=== PATIENT | male | born 1995 | race Caucasian/White ===

== ENCOUNTER 2018-02-03 16:45 | Emergency (ER) | payer SELFPAY ==
[2018-02-03 16:47] VITALS: BP 155/75; PULSE 105; RESP 17; TEMP 36.8; O2SAT 97; BMI 29.7
--- NOTE | 2018-02-03 16:57 | ED.VISSUMM ---
- ER Visit Summary Date of Service: 02/03/18 Chief Complaint: Tooth pain, facial swelling History of Present Illness: The patient is a 22 M who presents with the above symptoms. His tooth has been hurting for 2 days. He noted some facial swelling. He denies fevers. He has not checked his temperature today. He has been taking ibuprofen without any relief. He has no dentist that he sees. He is a smoker. Physical Examination: Vital signs are reviewed. HEENT exam reveals a mild amount of right sided facial swelling. No dental or gingival abscesses noted. No cervical lymphadenopathy. Mouth exam reveals a dental fracture at tooth #29. Tenderness to palpation around this area is noted. No Serge's angina. Test Results: None performed Emergency Department Course and Treatment: Patient will be treated with one [place] and penicillin here. Naproxen and penicillin for home. He will be given dental resources to follow-up with. Treatment Plan: [] Disposition: Discharge Impression: Odontalgia This note was generated with [employer] dictation software. It may contain incorrect words, spelling, and punctuation that were not noted in review of the chart prior to signing ED Disposition - Plan for ED Patient: Chief Complaint: Dental Referrals: Care Physician,No Primary [Primary Care Provider] -
--- NOTE | 2018-02-03 16:59 | ED.DEP ---
ED Disposition - Plan for ED Patient: Disposition: Home or Assisted Living Chief Complaint: Dental Instructions: ED Tooth Pain Prescriptions: Naproxen [Naprosyn] 500 mg PO BID PRN #20 tab Penicillin V Potassium 500 mg PO 4X/DAY #28 tab Referrals: Care Physician,No Primary [Primary Care Provider] -
[2018-02-03] MEDS: HYDROcodone Bitartrate/Apap 5/325 Tablet PO (17:08)
[2018-02-03] MEDS: Penicillin Vk 250 MG Tablet 500 MG PO (17:08)
== END 2018-02-03 17:13 | disposition home or self-care (01) ==
PROVIDERS: Emergency Provider Emergency Medicine
DX: S02.5XXA Fracture of tooth (traumatic), initial encounter for closed fracture (principal); X58.XXXA Exposure to other specified factors, initial encounter; F17.200 Nicotine dependence, unspecified, uncomplicated
CPT/HCPCS: 99283

== ENCOUNTER 2018-03-20 23:09 | Emergency (ER) | payer SELFPAY ==
[2018-03-20 23:10] VITALS: BP 136/70; BP 141/75; PULSE 90; PULSE 94; RESP 16; TEMP 37; O2SAT 98; BMI 32.3
--- NOTE | 2018-03-20 23:49 | ED.DCSUM_ITS ---
- ER Visit Summary Date of Service: 03/20/18 Chief Complaint: Dental pain History of Present Illness: The patient is a 22 M who goes to the dentist in [place]. He does not have a primary care physician. He reports that he was here approximately 1 month ago for a dental abscess. He was placed on penicill in. Reports that the abscess seem to have improved. His pain resolved. He states that he missed his dental appointment because area was infected and he is self-pay and did not want to go and has not stated they could not do anything. Patient reports that he began getting pain to his right mandibular third molar again 3 days ago. Is a sharp pain is 1010 at worst and 7-10 currently. Is worsened by pressure and relieved by Tylenol. He denies any soft hot or cold sensitivity. Patient states that last night he saw a small white bubble in the gum and popped it and his pain increased greatly. However, today he has had subjective fever and chills. Complains of nausea without vomiting. He has a headache that is 4- 10 severity. Physical Examination: Vitals: Stable. Afebrile. Mouth: No trismus. No edema of the floor of the mouth. Pain with percussion of right mandibular third molar. There is mild soft tissue swelling here. No focal abscess. General: A&O x 3. NAD. Cardiovascular exam: Regular rate and rhythm, no murmur, rub or gallop. Respiratory exam: Clear to auscultation bilaterally. No wheezes or stridor. Abdominal exam: Soft, nontender, nondistended, normal bowel sounds. No peritoneal signs. Extremity: No clubbing, cyanosis, or edema. Emergency Department Course and Treatment: I offered to put in an IV to give patient clindamycin. He refused this. He was given Zofran, clindamycin, naproxen, and Hallock p.o. An OARRS report was obtained which is negative. Treatment Plan: Patient will be discharged with Zofran, clindamycin, naproxen, and Hallock. Instructed to follow-up with his dentist as soon as possible. Return to the emergency department for any worsening symptoms. Disposition: To home in improved and stable condition. Impression: 1. Dental abscess. This note was generated with [employer] software. It may contain incorrect words, spelling, and punctuation that were not noted in review of the chart prior to signing ED Disposition - Plan for ED Patient: Disposition: Home or Assisted Living Chief Complaint: Dental Instructions: ED Abscess Dental Prescriptions: Hydrocodone Bitart/Apap 5-325 [Hallock 5MG-325MG] 1 tablet PO Q4H PRN PRN 2 Days #10 tablet PRN Reason: Pain Ondansetron [Zofran Odt] 4 mg PO Q8H PRN PRN #10 tablet PRN Reason: Nausea Naproxen [Naprosyn] 500 mg PO BID #14 tablet Clindamycin [Cleocin] 300 mg PO 4X/DAY #80 capsule Referrals: Dentist,Your [STAFF PHYSICIAN] - As soon as possible
[2018-03-21] MEDS: Clindamycin HCl 150 MG Capsule 300 MG PO (00:05)
[2018-03-21] MEDS: HYDROcodone Bitartrate/Apap 5/325 Tablet PO ×2 (00:06→00:15)
[2018-03-21] MEDS: Naproxen 250 MG Tablet 500 MG PO (00:06)
[2018-03-21] MEDS: Ondansetron ODT 4 MG Tablet PO ×2 (00:16)
== END 2018-03-21 00:19 | disposition home or self-care (01) ==
LOC: ED 03-21 00:11
PROVIDERS: Emergency Provider Emergency Medicine
DX: K04.7 Periapical abscess without sinus (principal); Z72.0 Tobacco use
CPT/HCPCS: 99283

== ENCOUNTER 2018-06-11 19:33 | Emergency (ER) | payer SELFPAY ==
[2018-06-11 19:33] VITALS: BP 154/79; PULSE 111; RESP 16; TEMP 36.4; O2SAT 98; BMI 31.8
--- NOTE | 2018-06-11 19:43 | CT_ITS ---
STUDY: CT ABDOMEN AND PELVIS WITH CONTRAST REASON FOR EXAM: Male, 23 years old. Left side abdominal pain, nausea, constipation. RADIATION DOSAGE (If Supplied By Facility): CTDIvol = ( 15.74 ) mGy, DLP = ( 991.52 ) mGycm TECHNIQUE: Transaxial images were obtained from the dome of the diaphragm to the symphysis pubis without oral contrast. Isovue 300 100ml IV/Oral was administered. Sagittal and coronal images were reconstructed. Individualized dose optimization techniques were used for this CT. COMPARISON: None. FINDINGS: Lung bases are clear. Visualized heart is normal. The liver is unremarkable. The gallbladder is unremarkable. The spleen and pancreas are unremarkable. The adrenal glands are normal. The kidneys are unremarkable. No stones or hydronephrosis. The aorta is normal in caliber. There is no free fluid, free air, or organized collection. No bowel obstruction or inflammatory change. Stool burden is located moderate. Normal appendix. Urinary bladder is unremarkable. Normal abdominal wall. Normal osseous structures. CT/Abdomen/Pelvis WITH Contrast IMPRESSION: Normal CT of the abdomen and pelvis. Electronically Signed: Myesha Lemos MD at 22:34 EDT Tel , Service support ,
[2018-06-11 20:17] LABS: Absolute Lymphocyte Count 1.92 X10^3/ul (0.83-4.51); Absolute Neutrophil Count 4.2 X10^3/uL (2.0-7.7); Basophil# 0.02 X10^3/uL; Basophil% 0.3 % (0-1); Eosinophil# 0.06 X10^3/uL; Eosinophils% 0.8 % (0-5); Hematocrit 49.4 % (40-54); Hemoglobin 16.3 g/dl (13.0-16.5); Lymphocyte # 1.92 X10^3/ul (4.0); Lymphocyte % 26.6 % (19-41); Mean Corpuscular Hgb 27.9 pg (27.0-32.0); Mean Corpuscular Volume 84.4 fL (80-94); Mean Platelet Vol. 10.2 fl (6.2-12.0); Monocyte# 1.04 X10^3/uL; Monocyte% 14.4 % (0-10); Neutrophil # 4.16 X10^3/uL (2.7-7.7); Neutrophil % 57.6 % (47-70); Platelet Count 256 K/mm3 (150-450); RBC Distribution Width SD 39.8 fl (35.1-43.9); Red Blood Count 5.85 M/mm3 (4.6-6.2); White Blood Count 7.2 K/mm3 (4.4-11.0)
[2018-06-11 20:22] LABS: POSITIVE COUNT NO; POSITIVE DIFFERENTIAL NO; POSITIVE MORPHOLOGY NO
[2018-06-11 20:42] LABS: ALB/GLOB Ratio 1.1 RATIO (0.9-2.4); AST(SGOT) 18 U/L (15-37); Alanine Aminotransfer ALT/SGPT 36 U/L (16-61); Albumin, Serum 4.4 g/dL (3.2-5.0); Alkaline Phosphatase 92 U/L (45-117); Anion Gap 2 (5-15); BUN 10 mg/dL (7-18); BUN/Creat Ratio 9.6 RATIO (10-20); Calcium,Total 8.8 mg/dL (8.5-10.1); Chloride 103 mmol/L (98-107); Creatinine, Serum 1.04 mg/dL (0.70-1.30); EST Glomerular Filtration Rate 93 mL/min (>60); Est Glom Filt Rate - Afr Amer 113 mL/min (>60); Globulin 3.9 g/dL (2.2-4.2); Glucose 115 mg/dL (74-106); Lipase 74 U/L (73-393); Potassium 3.7 mmol/L (3.5-5.1); Protein, Total 8.3 g/dL (6.4-8.2); Sodium Level 137 mmol/L (136-145)
[2018-06-11 20:44] LABS: Lactic Acid 1.4 mmol/L (0.4-2.0)
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
[2018-06-11] MEDS: Ondansetron 4 MG/2 ML Vial IV (21:49)
[2018-06-11] MEDS: Morphine 4 MG/ML Syringe IV (21:52)
[2018-06-11 21:53] VITALS: BP 154/98; PULSE 96; RESP 16; O2SAT 97
[2018-06-11 22:27] VITALS: BP 172/86; PULSE 84; RESP 16; O2SAT 96
[2018-06-11] MEDS: 0.9% Normal Saline 1,000 ML 999 ML IV (22:45)
--- NOTE | 2018-06-11 22:46 | ED.DEP ---
ED Disposition - Plan for ED Patient: Disposition: Home or Assisted Living Instructions: ED Constipation Referrals: Nishant Vergara MD [STAFF PHYSICIAN] - 3-5 Days if not improving Additional Instructions: Plenty of fluids. Fruits, vegetables and fiber for the constipation along with prune juice. Magnesium citrate to help with constipation. Follow-up with not improving or return to ER feeling worse. Your CAT scan and labs were unremarkable other than increased stool consistent with constipation.
[2018-06-11] MEDS: Magnesium Citrate 300 ML PO (23:05)
[2018-06-11 23:10] VITALS: BP 148/70; PULSE 77; RESP 15; O2SAT 97
== END 2018-06-11 23:26 | disposition home or self-care (01) ==
PROVIDERS: Emergency Provider Emergency Medicine
DX: R10.13 Epigastric pain (principal); K59.00 Constipation, unspecified; Z72.0 Tobacco use
CPT/HCPCS: 74177; 80053; 83605; 83690; 85025; 96361; 96374; 96375; 99283; J7030; Q9967; A4216; J2405

== ENCOUNTER 2018-06-13 15:36 | Emergency (ER) | payer SELFPAY ==
[2018-06-13 15:36] VITALS: BP 167/98; PULSE 113; RESP 16; TEMP 36.6; O2SAT 98; BMI 26.6
[2018-06-13 15:48] VITALS: PULSE 114; RESP 20; O2SAT 97
--- NOTE | 2018-06-13 15:57 | ED.RN ---
RESPIRATORY CAME IN TO DO AN EKG. PT REFUSED.
--- NOTE | 2018-06-13 16:01 | EKG12_ITS ---
Test Reason : CHEST PAIN Blood Pressure : / mmHG Vent. Rate : 105 BPM Atrial Rate : 105 BPM P-R Int : 130 ms QRS Dur : 090 ms QT Int : 354 ms P-R-T Axes : 060 060 028 degrees QTc Int : 467 ms Sinus tachycardia Otherwise normal ECG Confirmed by ALEJANDRINA GUTIERREZ, TANIA ([id number]), general expeditor NAY NAIDU ([id number]) on 06/14/2018 2:25:43 PM Referred By: MICHI Confirmed By:TANIA TINOCO MD
[2018-06-13] MEDS: LORazepam 1 MG Tablet PO ×2 (16:05→17:50)
--- NOTE | 2018-06-13 16:06 | ED.DCSUM_ITS ---
- ER Visit Summary Date of Service: 06/13/18 Chief Complaint: Chest pain, anxiety History of Present Illness: The patient is a 23 M presenting with chest pain, anxiety. He states this started while [place]. He started having chest pain and shortness of breath. He states he feels shaky all over. He has never had these symptoms in the past. He states he is under a lot of stress with work. Physical Examination: Vitals are stable. HR 114. Patient is afebrile. Alert no acute distress. HEENT exam is unremarkable. Neck is supple. Lungs are clear and equal bilaterally. Heart is regular and tachycardic Abdomen is soft nontender nondistended. Extremities are unremarkable. Skin is warm and dry. No focal neurologic deficit. Remainder of exam is unremarkable. Emergency Department Course and Treatment: Patient was given IV fluids, Ativan. EKG is sinus tachycardia rate of 105. Chest x-ray shows no acute process. CBC, chemistries are unremarkable. Troponin is negative. D-dimer negative. Patient was given Toradol IV. He was given additional dose of Ativan. Following the second dose of Ativan patient is now starting to feel improved. He is given a prescription for Vistaril. Advised to follow-up with primary care physician. Advised return to ED if worsening complaints. Disposition: Discharge home Impression: Chest pain, anxiety This note was generated with [employer] dictation software. It may contain incorrect words, spelling, and punctuation that were not noted in review of the chart prior to signing ED Disposition - Plan for ED Patient: Instructions: ED Panic Attack Prescriptions: hydrOXYzine pamoate capsule [Vistaril] 25 mg PO TID PRN PRN #20 capsule PRN Reason: Anxiety Referrals: Blair Camacho DO [NON CLINICAL AFFILIATE] -
--- NOTE | 2018-06-13 16:06 | ED.RN ---
pt does have c/o chest pain, pt refuses the ekg at this time until he can calm down.
[2018-06-13] MEDS: 0.9% Normal Saline 1,000 ML 1000 ML IV (16:33)
--- NOTE | 2018-06-13 16:33 | ED.RN ---
AT THIS TIME PT REFUSES THE CHEST X-RAY.
[2018-06-13 16:34] LABS: Absolute Lymphocyte Count 1.78 X10^3/ul (0.83-4.51); Absolute Neutrophil Count 3.2 X10^3/uL (2.0-7.7); Basophil# 0.02 X10^3/uL; Basophil% 0.3 % (0-1); Eosinophil# 0.06 X10^3/uL; Hematocrit 44.6 % (40-54); Hemoglobin 14.3 g/dl (13.0-16.5); Lymphocyte # 1.78 X10^3/ul (4.0); Lymphocyte % 30.4 % (19-41); Mean Corp Hgb Conc 32.1 g/gl (32-36); Mean Corpuscular Hgb 27.7 pg (27.0-32.0); Mean Corpuscular Volume 86.3 fL (80-94); Mean Platelet Vol. 10.1 fl (6.2-12.0); Monocyte# 0.78 X10^3/uL; Monocyte% 13.3 % (0-10); Neutrophil # 3.19 X10^3/uL (2.7-7.7); Neutrophil % 54.7 % (47-70); Platelet Count 211 K/mm3 (150-450); RBC Distribution Width CV 12.8 % (11.6-14.6); RBC Distribution Width SD 40.5 fl (35.1-43.9); Red Blood Count 5.17 M/mm3 (4.6-6.2); White Blood Count 5.9 K/mm3 (4.4-11.0)
[2018-06-13 16:35] LABS: POSITIVE COUNT NO; POSITIVE DIFFERENTIAL NO; POSITIVE MORPHOLOGY NO
[2018-06-13 16:49] LABS: D-Dimer Quantitative (DVT/PE) 0.27 FEU/ug/m (0.27-0.49)
[2018-06-13 16:54] LABS: Anion Gap 3 (5-15); BUN 11 mg/dL (7-18); BUN/Creat Ratio 11.1 RATIO (10-20); Calcium,Total 8.6 mg/dL (8.5-10.1); Chloride 104 mmol/L (98-107); Creatinine, Serum 0.99 mg/dL (0.70-1.30); EST Glomerular Filtration Rate 99 mL/min (>60); Est Glom Filt Rate - Afr Amer 120 mL/min (>60); Estimated Creatinine Clearance 107.57 ml/min; Glucose 101 mg/dL (74-106); Potassium 3.5 mmol/L (3.5-5.1); Sodium Level 137 mmol/L (136-145)
--- NOTE | 2018-06-13 16:54 | RAD_ITS ---
STUDY: X-RAY CHEST REASON FOR EXAM: Male, 23 years old. Shortness of breath TECHNIQUE: Frontal view of the chest COMPARISON: None. FINDINGS: The lungs are clear. There are no pleural effusions. There is no pneumothorax. The heart is normal in size. The visualized osseous structures are within normal limits. RAD/Chest 1 View (Portable) IMPRESSION: No acute thoracic pathology. Electronically Signed: Hans Gómez, at 17:15 EDT Tel , Service support ,
[2018-06-13] MEDS: Ketorolac 30 MG/ML Syringe IV (16:57)
[2018-06-13 17:30] VITALS: BP 149/81; PULSE 99; RESP 12; O2SAT 98
--- NOTE | 2018-06-13 18:41 | ED.DEP ---
ED Disposition - Plan for ED Patient: Instructions: ED Panic Attack Prescriptions: hydrOXYzine pamoate capsule [Vistaril] 25 mg PO TID PRN PRN #20 capsule PRN Reason: Anxiety Referrals: Blair Camacho DO [NON CLINICAL AFFILIATE] -
[2018-06-13 18:43] VITALS: BP 146/85; PULSE 98; RESP 16; O2SAT 97
== END 2018-06-13 18:52 | disposition home or self-care (01) ==
LOC: ED 16:38
PROVIDERS: Emergency Provider Emergency Medicine
DX: F41.0 Panic disorder [episodic paroxysmal anxiety] (principal); F43.0 Acute stress reaction; R07.9 Chest pain, unspecified; Z72.0 Tobacco use
CPT/HCPCS: 71045; 80048; 84484; 85025; 85379; 93005; 96361; 96374; 99285; J7030; A4216

== ENCOUNTER 2019-01-11 20:12 | Emergency (ER) | payer MEDICAID, SELFPAY ==
[2019-01-11 20:12] VITALS: PULSE 114
[2019-01-11 20:13] VITALS: PULSE 123; RESP 18; TEMP 37; O2SAT 100; BMI 31.1
--- NOTE | 2019-01-11 20:25 | EKG12_ITS ---
Test Reason : CP Blood Pressure : / mmHG Vent. Rate : 106 BPM Atrial Rate : 106 BPM P-R Int : 132 ms QRS Dur : 082 ms QT Int : 348 ms P-R-T Axes : 059 059 050 degrees QTc Int : 462 ms Sinus tachycardia Otherwise normal ECG Confirmed by JUSTIN GUTIERREZ, SIMEON ([id number]), senior technical editor NAY NAIDU ([id number]) on 01/18/2019 11:08:05 AM Referred By: LINDA Confirmed By:IVANA ANDERSON MD
--- NOTE | 2019-01-11 20:25 | RAD_ITS ---
STUDY: X-RAY CHEST REASON FOR EXAM: Male, 23 years old. Left chest pain radiating down left arm TECHNIQUE: AP portable COMPARISON: June 13, 2018 FINDINGS: Less than optimal inspiratory effort is seen however the lungs are clear. There is no demonstrated pleural abnormality. Normal size heart. Normal mediastinum and ami. Normal visualized pulmonary arteries. Normal visualized aortic arch and descending thoracic aorta. Normal visualized thoracic spine. Normal visualized ribs, clavicles, and shoulders. There is no demonstrated abnormality of the visualized soft tissue structures of the upper abdomen. No significant change since prior study RAD/Chest 1 View (Portable) IMPRESSION: Suboptimal inspiratory effort. No acute disease Electronically Signed: Ethan Oates MD at 20:44 EDT , Service support ,
[2019-01-11 20:35] LABS: Absolute Lymphocyte Count 3.62 X10^3/uL (0.83-4.51); Absolute Neutrophil Count 3.6 X10^3/uL (2.0-7.7); Basophil# 0.04 X10^3/uL; Basophil% 0.5 % (0-1); Eosinophil# 0.09 X10^3/uL; Hematocrit 45.9 % (40-54); Hemoglobin 14.9 g/dL (13.0-16.5); Lymphocyte # 3.62 X10^3/ul (4.0); Lymphocyte % 41.9 % (19-41); Mean Corp Hgb Conc 32.5 g/dL (32-36); Mean Corpuscular Hgb 27.9 pg (27.0-32.0); Mean Platelet Vol. 10.6 fl (6.2-12.0); Monocyte# 1.29 X10^3/uL; Monocyte% 14.9 % (0-10); NRBC Flagged by Analyzer 0 % (0-5); Neutrophil # 3.57 X10^3/uL (2.7-7.7); Neutrophil % 41.4 % (47-70); Platelet Count 243 K/mm3 (150-450); RBC Distribution Width CV 12.6 % (11.6-14.6); RBC Distribution Width SD 39.6 fl (35.1-43.9); Red Blood Count 5.34 M/mm3 (4.6-6.2); White Blood Count 8.6 K/mm3 (4.4-11.0)
[2019-01-11] MEDS: 0.9% Normal Saline 1,000 ML 150 ML IV (20:40)
[2019-01-11] MEDS: Ketorolac 30 MG/ML Syringe IV (20:40)
[2019-01-11 20:42] LABS: D-Dimer Quantitative (DVT/PE) < 0.27 FEU/ug/m (0.27-0.49)
[2019-01-11 20:48] LABS: Anion Gap 8 (5-15); BUN 15 mg/dL (7-18); BUN/Creat Ratio 15.6 RATIO (10-20); Calcium,Total 9.1 mg/dL (8.5-10.1); Chloride 105 mmol/L (98-107); Creatinine, Serum 0.96 mg/dL (0.70-1.30); EST Glomerular Filtration Rate 102 mL/min (>60); Est Glom Filt Rate - Afr Amer 123 mL/min (>60); Estimated Creatinine Clearance 122.51 ml/min; Glucose 106 mg/dL (74-106); Potassium 3.3 mmol/L (3.5-5.1); Sodium Level 139 mmol/L (136-145)
[2019-01-11 20:55] LABS: Erythrocyte Sedimentation Rate 13 mm/hr (0-15)
--- NOTE | 2019-01-11 21:08 | ED.DCSUM_ITS ---
- ER Visit Summary Date of Service: 01/11/19 Chief Complaint: [Chest pain] History of Present Illness: The patient is a 23 M [presents to the emergency department with chest pain that has had intermittently for over 5 months. Patient states that he has severe pain that radiates from his chest onto his left arm at times. Patient states the pain sometimes will go up into his neck. He is been seen in the ER for this in the past has been diagnosed with anxiety. Patient was on anxiety medications but he is not currently on anything because he did not feel like it was helping him. Patient was on BuSpar for a time and Vistaril which were not helping him. His recent travel or surgery. Today patient states that he was fine all day but then got on the phone and started feeling weird and then developed severe chest pain. He has history of high cholesterol. He is a smoker. He denies any fever or cough.] Physical Examination: [HEENT-PERRLA, EOMI. Cranial nerves II through XII grossly intact. TMs clear. Mucous membranes moist. No adenopathy. Cardiovascular-regular and tachycardic with heart rate in the low 100s. No murmurs auscultated. No rubs or clicks noted. Lungs-clear to auscultation, chest wall stable without crepitus or subcu emphysema. Patient does have some tenderness palpation of the left anterior chest wall that seems to reproduce his pain. Abdomen-normoactive bowel sounds, soft, nontender, no rebound or rigidity, no peritoneal signs. Extremities-intact ?4, normal range of motion, normal pulses, atraumatic] Test Results: [EKG obtained on arrival showed a sinus tachycardia with a ventricular rate of 106 bpm with no acute ST segment changes. CBC with differential was normal. Sed rate was normal at 13. Chemistries unremarkable. Troponin is less than 0.15. D-dimer is less than 0.27. Chest x-ray was normal.] Emergency Department Course and Treatment: [Was given Toradol and was ordered Ativan however he refused the Ativan because he does not think his symptoms are anxiety related.] Treatment Plan: [We will have a Holter monitor placed. Patient to follow-up with primary care physician data integration developer for no doc. Patient apparently has an order for an echocardiogram to be performed which is scheduled.] Disposition: [Discharged home in stable condition.] Impression: [Chest pain-etiology uncertain] This note was generated with [employer] dictation software. It may contain incorrect words, spelling, and punctuation that were not noted in review of the chart prior to signing ED Disposition - Plan for ED Patient: Referrals: Care Physician,No Primary [Primary Care Provider] -
--- NOTE | 2019-01-11 21:11 | ED.DEP ---
ED Disposition - Plan for ED Patient: Instructions: CHEST PAIN, Uncertain Cause Referrals: Care Physician,No Primary [Primary Care Provider] - Jeremy Oliva III, MD [STAFF PHYSICIAN] - 3-5 Days
[2019-01-11 21:23] VITALS: BP 124/64; PULSE 71; RESP 16; O2SAT 98
== END 2019-01-11 21:46 | disposition home or self-care (01) ==
PROVIDERS: Emergency Provider Emergency Medicine
DX: R07.9 Chest pain, unspecified (principal); E78.00 Pure hypercholesterolemia, unspecified; F17.200 Nicotine dependence, unspecified, uncomplicated
CPT/HCPCS: 71045; 80048; 84484; 85025; 85379; 85652; 93005; 93225; 93226; 96361; 96374; 99285; J7030; A4216

== ENCOUNTER → 2019-01-11 21:28 | Outpatient (CLI) | payer MEDICAID, SELFPAY ==
[2019-01-11 20:13] VITALS: BMI 31.1
== END ==
PROVIDERS: Visit Provider Internal Medicine Cardiovascular Disease
DX: R69 Illness, unspecified (principal)
CPT/HCPCS: 93225; 93226

== ENCOUNTER 2019-02-23 20:37 | Emergency (ER) | payer MEDICAID, SELFPAY ==
[2019-02-23 20:38] VITALS: BP 172/110; PULSE 103; RESP 18; TEMP 36.4; O2SAT 98; BMI 33.6
--- NOTE | 2019-02-23 21:01 | EKG12_ITS ---
Test Reason : CP Blood Pressure : / mmHG Vent. Rate : 092 BPM Atrial Rate : 092 BPM P-R Int : 114 ms QRS Dur : 086 ms QT Int : 352 ms P-R-T Axes : 047 055 038 degrees QTc Int : 435 ms Normal sinus rhythm Normal ECG Confirmed by TANIA TINOCO MD ([id number]), greeting card editor MARLYS MATA ([id number]) on 02/27/2019 11:45:49 AM Referred By: Confirmed By:TANIA TINOCO MD
--- NOTE | 2019-02-23 21:01 | CT_ITS ---
STUDY: CT BRAIN WITHOUT CONTRAST REASON FOR EXAM: Male, 23 years old. SYNCOPAL EPISODE EARLIER TODAY/SAL rt and posterior head. Pt shielded RADIATION DOSAGE (If Supplied By Facility): CTDIvol = ( 44.99 ) mGy, DLP = ( 863.60 ) mGycm TECHNIQUE: Transaxial CT imaging of the brain was performed without administration of intravenous contrast material. Individualized dose optimization techniques were used for this CT. COMPARISON: None. FINDINGS: Normal soft tissue structures. Normal calvarium. Normal size ventricles and extra-axial spaces for the patient's age. Normal white matter tracts of the cerebral hemispheres. Normal basal ganglia and thalami. Normal brainstem. Normal cerebellum. There is no intracranial hemorrhage. There are no findings of an acute ischemic infarction. Normal visualized paranasal sinuses. CT/Brain/Head without Contrast IMPRESSION: No demonstrated acute or significant intracranial process.. Electronically Signed: Darrell Carpio MD at 21:55 EST , Service support ,
[2019-02-23 21:20] VITALS: BP 159/90; PULSE 80; RESP 13; O2SAT 96
[2019-02-23 21:21] LABS: Mucous, Urine 0 SEEN /hpf (<or=2+); Squamous Epithelial Cells - UA 0 SEEN /hpf (0-5)
--- NOTE | 2019-02-23 21:27 | RAD_ITS ---
STUDY: X-RAY CHEST REASON FOR EXAM: Male, 23 years old. PT PASSED OUT TODAY AND HAS BEEN HAVING CP FOR ONE YEAR. STATES HE HAS HAD UPPER BACK PAIN,HEADACHE AND BLOODY NOSE AND NO ONE CAN FIGURE OUT WHATS WRONG TECHNIQUE: PA and lateral views of the chest. COMPARISON: January 11, 2019 FINDINGS: The lungs are clear and expanded. There is no demonstrated pleural abnormality. Normal size heart. Normal mediastinum and ami. Normal visualized pulmonary arteries. Normal visualized aortic arch and descending thoracic aorta. Normal visualized thoracic spine. Normal visualized ribs, clavicles, and shoulders. There is no demonstrated abnormality of the visualized soft tissue structures of the upper abdomen. RAD/Chest PA and Lateral IMPRESSION: Normal x-ray examination of the chest. Electronically Signed: Darrell Carpio MD at 22:05 EST , Service support ,
[2019-02-23 21:38] LABS: Absolute Lymphocyte Count 2.34 X10^3/uL (0.83-4.51); Absolute Neutrophil Count 2.9 X10^3/uL (2.0-7.7); Basophil# 0.03 X10^3/uL; Basophil% 0.5 % (0-1); Eosinophil# 0.08 X10^3/uL; Eosinophils% 1.2 % (0-5); Hematocrit 46.8 % (40-54); Hemoglobin 15.1 g/dL (13.0-16.5); Lymphocyte # 2.34 X10^3/ul (4.0); Lymphocyte % 36.5 % (19-41); Mean Corp Hgb Conc 32.3 g/dL (32-36); Mean Corpuscular Hgb 27.5 pg (27.0-32.0); Mean Corpuscular Volume 85.2 fL (80-94); Mean Platelet Vol. 10.2 fl (6.2-12.0); Monocyte# 1.04 X10^3/uL; Monocyte% 16.2 % (0-10); NRBC Flagged by Analyzer 0 % (0-5); Neutrophil # 2.91 X10^3/uL (2.7-7.7); Neutrophil % 45.4 % (47-70); Platelet Count 222 K/mm3 (150-450); RBC Distribution Width CV 12.6 % (11.6-14.6); RBC Distribution Width SD 38.9 fl (35.1-43.9); Red Blood Count 5.49 M/mm3 (4.6-6.2); White Blood Count 6.4 K/mm3 (4.4-11.0)
[2019-02-23 21:44] LABS: Color, Urine Yellow (Yellow); Glucose, Dipstick Normal (Normal); Ketone-Dipstick Negative (Negative); Leukocyte Esterase-Dipstick Negative /ul (Negative); Nitrite-Dipstick Negative (Negative); Occult Blood-Urine Negative /ul (Negative); Protein-Dipstick 15 mg/dl (Negative); Urine Bilirubin Dipstick Negative (Negative); Urine Clarity Clear (Clear); Urine Urobilinogen Normal (Normal)
[2019-02-23 21:51] LABS: ALB/GLOB Ratio 1.1 RATIO (0.9-2.4); AST(SGOT) 10 U/L (15-37); Alanine Aminotransfer ALT/SGPT 26 U/L (16-61); Alkaline Phosphatase 76 U/L (45-117); Anion Gap 7 (5-15); BUN 19 mg/dL (7-18); Calcium,Total 8.6 mg/dL (8.5-10.1); Chloride 107 mmol/L (98-107); Creatinine, Serum 1.27 mg/dL (0.70-1.30); EST Glomerular Filtration Rate 74 mL/min (>60); Est Glom Filt Rate - Afr Amer 89 mL/min (>60); Estimated Creatinine Clearance 83.85 ml/min; Globulin 3.6 g/dL (2.2-4.2); Glucose 90 mg/dL (74-106); Potassium 3.8 mmol/L (3.5-5.1); Protein, Total 7.6 g/dL (6.4-8.2); Sodium Level 142 mmol/L (136-145)
[2019-02-23 21:58] LABS: Red Blood Cells-Urine 0-5 SEEN /hpf (0-5); White Blood Cells 0-5 SEEN /hpf (0-5)
[2019-02-23 22:00] LABS: Bacteria RARE /hpf (None Seen)
[2019-02-23 22:07] LABS: Amphetamine Urine VISTA NEGATIVE (<1000 ng/mL); Barbiturate Urine VISTA NEGATIVE (< 200 ng/mL); Benzodiazepine Urine VISTA NEGATIVE (< 200 ng/mL); Cocaine Urine VISTA NEGATIVE (< 300 ng/mL); Ecstacy Urine VISTA NEGATIVE (< 500 ng/mL); Methadone Urine VISTA NEGATIVE (< 300 ng/mL); PCP Urine VISTA NEGATIVE (< 25 ng/mL); THC Urine VISTA NEGATIVE (< 50 ng/mL); Vista UDS pH Range 7
--- NOTE | 2019-02-23 22:21 | ED.DCSUM_ITS ---
- ER Visit Summary Date of Service: 02/23/19 Chief Complaint: Syncope History of Present Illness: The patient is a 23 M who states that today he was at a friend's house sitting in a chair when he went to get up he had a syncopal episode. Significant other notes that he was very red prior to him getting up. He tells me that he has been ill for a year with numerous problems that nobody can figure out and also tells me that nobody has done anything to evaluate this. When in fact the patient has had an echocardiogram, EKGs, Holter monitors, and recently saw neurology and has a MRI and an EEG ordered. He also tells me that people keep telling him that he has anxiety. He notes headache bumps in his s kin twitching of his eyes abdominal pain neck pain back pain bloody nose chills and paresthesias. It is difficult to get the patient to provide me a linear timeline as he keeps jumping from symptom to symptom. Physical Examination: Afebrile vital signs are stable Gen: Well-nourished well-developed Head: Normocephalic atraumatic Eyes: Perrl EOMI ENT: TMs clear no rhinorrhea moist mucous membranes Neck: Supple no lymphadenopathy no JVD nontender CVS: Regular rate rhythm no murmurs normal S1-S2 Respiratory: No distress clear to auscultation bilaterally chest nontender Abdomen: Soft nontender nondistended normal bowel sounds no masses Back: Nontender Extremity: Nontender no edema Skin: Normal color no rash patient points to his forearm and has me feel a 2 mm rubbery nodule in the skin probable lipoma Neuro: alert orientated ?3 CN II-XII intact normal strength sensation reflexes gait cerebellar Psych: Pressured speech and seems anxious Test Results: EKG sinus with a rate of 82. CBC chemistries normal. Urinalysis troponin negative. Urine drug screen negative. Chest x-ray negative. CT of the brain was negative. Emergency Department Course and Treatment: Patient was observed in the department on the monitor. In the 2 hours he was on the monitor there have been no dysrhythmias. Patient has numerous somatic complaints. I do not see any life-threatening causes for his symptomology tonight. Patient will be discharged home to continue follow-up with his doctors Impression: 1. Syncope 2. Headache This note was generated with [employer] dictation software. It may contain incorrect words, spelling, and punctuation that were not noted in review of the chart prior to signing ED Disposition - Plan for ED Patient: Disposition: Home or Assisted Living Instructions: SYNCOPE, Unk Cause Referrals: Rajat Marshall MD [Primary Care Provider] - As soon as possible
[2019-02-23 22:37] VITALS: BP 113/84; PULSE 81; RESP 18; O2SAT 99
== END 2019-02-23 22:38 | disposition home or self-care (01) ==
PROVIDERS: Emergency Provider Emergency Medicine; Family Provider Family Medicine; PCP Family Medicine
DX: R55 Syncope and collapse (principal); R51 Headache; F41.9 Anxiety disorder, unspecified
CPT/HCPCS: 70450; 71046; 80053; 80307; 81001; 84484; 85025; 93005; 99284; A4216

== ENCOUNTER 2019-03-18 00:51 | Emergency (ER) | payer MEDICAID, SELFPAY ==
[2019-03-18 00:52] VITALS: BP 175/97; PULSE 102; RESP 16; TEMP 36.8; O2SAT 98; BMI 34.2
--- NOTE | 2019-03-18 00:58 | EKG12_ITS ---
Test Reason : CP Blood Pressure : / mmHG Vent. Rate : 100 BPM Atrial Rate : 100 BPM P-R Int : 138 ms QRS Dur : 088 ms QT Int : 350 ms P-R-T Axes : 048 050 029 degrees QTc Int : 451 ms Normal sinus rhythm Normal ECG Confirmed by ALEJANDRINA GUTIERREZ, TANIA ([id number]), acquisition editor MARLYS MATA ([id number] on 03/20/2019 1:51:31 PM Referred By: LIAM Confirmed By:TANIA TINOCO MD
[2019-03-18 01:01] VITALS: BP 151/79
[2019-03-18] MEDS: LORazepam 1 MG Tablet PO (01:38)
[2019-03-18 01:59] VITALS: BP 149/78; PULSE 99; RESP 15; O2SAT 97
--- NOTE | 2019-03-18 01:59 | ED.DCSUM_ITS ---
- ER Visit Summary Date of Service: 03/18/19 Chief Complaint: Chest pain History of Present Illness: The patient is a 23 M who presents with chest pain. The pain started about 20 minutes prior to arrival. He had 2 similar episodes earlier today. It lasts for several minutes. It is over the right side of his chest. Associated with dry mouth, headache, nausea. Patient had this problem for over a year. He has follow-up with cardiology next month. Physical Examination: Afebrile and vital signs unremarkable except blood pressure 175/97 and heart rate 102. Patient appears anxious and is mildly agitated at times. HEENT exam unremarkable. Heart regular. Lungs clear. Abdomen soft nontender. Extremities nontender with no edema. Skin appears normal. Test Results: EKG shows sinus rhythm at a rate of 100. Troponin normal. Patient refused chest x-ray. Emergency Department Course and Treatment: Patient had an EKG and was placed on a monitor. He was slightly tachycardic. His troponin was normal. He refused a chest x-ray. He requested something for pain, but then refused Toradol. He said he did not want anything IV or IM. I offered other pain medicines, but he declined. He requested something for anxiety and received Ativan. On reevaluation, patient is stable. He has continued additional complaints including lymphadenopathy in his extremities, urinary frequency, neck pain, and multiple other complaints. I explained to the patient that I do not know what is causing all of his symptoms. I do not believe this is an emergent process. He has had multiple CBCs, most recently less than a month ago, normal ESR 2 months ago. Normal d- dimer 2 months ago. Normal CMP, urinalysis, tox less than a month ago he has worn a Holter monitor. He had a CT of his brain. He had an echo. There is n othing to suggest an emergent process. There are no further emergent diagnostic modalities available to help diagnose his symptoms. Patient was advised to follow-up as an outpatient. Treatment Plan: As above Disposition: Discharge Impression: Chest pain unclear etiology This note was generated with [employer] dictation software. It may contain incorrect words, spelling, and punctuation that were not noted in review of the chart prior to signing ED Disposition - Plan for ED Patient: Disposition: Home or Assisted Living Instructions: CHEST PAIN, Uncertain Cause Referrals: Rajat Marshall MD [Primary Care Provider] -
--- NOTE | 2019-03-18 02:00 | ED.DEP ---
ED Disposition - Plan for ED Patient: Instructions: CHEST PAIN, Uncertain Cause Referrals: Rajat Marshall MD [Primary Care Provider] -
== END 2019-03-18 02:08 | disposition home or self-care (01) ==
PROVIDERS: Emergency Provider Emergency Medicine; Family Provider Family Medicine; PCP Family Medicine
DX: R07.9 Chest pain, unspecified (principal); Z72.0 Tobacco use
CPT/HCPCS: 84484; 93005; 99283; A4216

== ENCOUNTER 2019-03-29 19:34 | Emergency (ER) | payer MEDICAID, SELFPAY ==
[2019-03-29 19:35] VITALS: BP 153/88; PULSE 108; RESP 17; TEMP 37.3; O2SAT 98; BMI 34.2
--- NOTE | 2019-03-29 19:39 | EKG12_ITS ---
Test Reason : CP Blood Pressure : / mmHG Vent. Rate : 106 BPM Atrial Rate : 106 BPM P-R Int : 122 ms QRS Dur : 082 ms QT Int : 318 ms P-R-T Axes : 036 045 046 degrees QTc Int : 422 ms Sinus tachycardia Otherwise normal ECG Confirmed by ALEJANDRINA GUTIERREZ, TANIA ([id number]), video editor MELODY RUANO ([id number]) on 03/30/2019 10:34:57 AM Referred By: MIRA WHEELER Confirmed By:TANIA TINOCO MD
--- NOTE | 2019-03-29 19:45 | RAD_ITS ---
STUDY: X-RAY CHEST REASON FOR EXAM: Male, 23 years old. Chest pain TECHNIQUE: Frontal view COMPARISON: February 23, 2019 FINDINGS: The lungs are clear and expanded. There is no demonstrated pleural abnormality. Normal size heart. Normal mediastinum and ami. Normal visualized pulmonary arteries. Normal visualized aortic arch and descending thoracic aorta. Normal visualized thoracic spine. Normal visualized ribs, clavicles, and shoulders. There is no demonstrated abnormality of the visualized soft tissue structures of the upper abdomen. RAD/Chest 1 View (Portable) IMPRESSION: Normal x-ray examination of the chest. Electronically Signed: Gustavo Martino DO at 20:03 EST Tel [phone], Service support ,
[2019-03-29 21:01] VITALS: BP 142/72; PULSE 91; RESP 12; O2SAT 97
[2019-03-29 21:02] LABS: Absolute Lymphocyte Count 2.06 X10^3/uL (0.83-4.51); Absolute Neutrophil Count 4.5 X10^3/uL (2.0-7.7); Basophil# 0.02 X10^3/uL; Basophil% 0.3 % (0-1); Eosinophil# 0.06 X10^3/uL; Eosinophils% 0.8 % (0-5); Hematocrit 47.3 % (40-54); Hemoglobin 15.5 g/dL (13.0-16.5); Lymphocyte # 2.06 X10^3/ul (4.0); Lymphocyte % 27.2 % (19-41); Mean Corp Hgb Conc 32.8 g/dL (32-36); Mean Corpuscular Hgb 28.2 pg (27.0-32.0); Mean Corpuscular Volume 86.2 fL (80-94); Mean Platelet Vol. 10.5 fl (6.2-12.0); Monocyte# 0.89 X10^3/uL; Monocyte% 11.8 % (0-10); NRBC Flagged by Analyzer 0 % (0-5); Neutrophil # 4.52 X10^3/uL (2.7-7.7); Neutrophil % 59.6 % (47-70); Platelet Count 234 K/mm3 (150-450); RBC Distribution Width CV 12.3 % (11.6-14.6); RBC Distribution Width SD 38.8 fl (35.1-43.9); Red Blood Count 5.49 M/mm3 (4.6-6.2); White Blood Count 7.6 K/mm3 (4.4-11.0)
[2019-03-29 21:22] LABS: Anion Gap 7 (5-15); BUN 15 mg/dL (7-18); BUN/Creat Ratio 13.2 RATIO (10-20); Calcium,Total 9.1 mg/dL (8.5-10.1); Chloride 109 mmol/L (98-107); Creatinine, Serum 1.14 mg/dL (0.70-1.30); EST Glomerular Filtration Rate 83 mL/min (>60); Est Glom Filt Rate - Afr Amer 101 mL/min (>60); Estimated Creatinine Clearance 93.42 ml/min; Glucose 88 mg/dL (74-106); Potassium 3.7 mmol/L (3.5-5.1); Sodium Level 144 mmol/L (136-145)
--- NOTE | 2019-03-29 21:41 | ED.VIS.CHEST ---
History of Present Illness Chief Complaint: Chest Pain Informant: Patient Onset: Days Timing: Continuous Quality: Sharp Associated Symptoms: Nausea, Diaphoresis, Cough, Lightheadedness, Palpitations Narrative: Patient is a 23-year-old male with history of chest pain and reported anxiety presenting with worsening chest pain. Patient states for the past 2 days he has had worsening right lower chest/rib pain that radiates into the center of his chest. He notes he has had substernal chest pain off and on for the past year but is been constant for the past 2 days. He notes he has been waking up with cold sweats at night associated with this. He is also had a worsening cough with phlegm production in the morning. In the morning he is also having nausea and chills. Patient has associated shortness of breath with the symptoms. He denies any edema or swelling of his legs. He notes he also has some left-sided neck pain that seems to radiate from the substernal pain. He is been taking ibuprofen with no relief of his symptoms. He is also concerned because he has lymph nodes that are swollen in his arms. Patient has appointment to see cardiology for cardiac evaluation for his chest pain coming up. Patient denies associated abdominal pain. He denies any change in his bowel habits. He denies any black or bloody stools. He denies any urinary symptoms. He denies any fever. Past Medical History - Allergies and Home Meds Allergies/Adverse Reactions: Allergies No Known Allergies Allergy (Verified 03/29/19 19:34) Primary Care Physician: Rajat Marshall MD [Primary Care Provider] - Past Medical History: - - anxiety, chest pain Surgical History: noncontributory Lives: Spouse/ Significant Other Smoking Status: Current every day smoker Review of Systems General: Denies: Chills, Fever, Sweats Eyes: Denies: Visual changes - bilaterally, Diplopia ENT: Denies: Rhinorrhea, Sore throat Cardiovascular: Reports: Chest pain, Heart racing. Denies: Palpitations Respiratory: Reports: Dyspnea. Denies: Cough, Dyspnea on exertion Gastrointestinal: Denies: Abdominal pain, Nausea, Vomiting, Diarrhea, Melena, Hematochezia Genitourinary: Denies: Dysuria, Hematuria, Frequency Musculoskeletal: Denies: Back pain, Extremity Pain Skin: Denies: Rash, Wounds Neurological: Reports: Headache. Denies: Weakness, Numbness Psych: Reports: Anxiety Hematologic: Reports: Lymphadenopathy - arms Physical Exam Vital Signs/Narrative: Vital Signs Temp Pulse Resp BP Pulse Ox 03/29/19 21:01 91 12 142/72 H 97 03/29/19 19:35 99.2 F H 108 H 17 153/88 H 98 Inital Vital Signs reviewed: Yes General: Well nourished, Well developed, No Acute Distress Head: Normocephalic, Atraumatic Eyes: Perrl, EOMI ENT: Moist mucous membranes, No rhinorrhea Neck: Supple, Nontender, No JVD Cardiovascular: Regular rate, Regular rhythm, No murmurs Respiratory: No distress, CTA bilaterally, Chest nontender, Chest tenderness - Right anterior lower ribs Abdomen: Soft, Nontender, Nondistended, Normal bowel sounds. Negative for: Feng's sign Back: Nontender, Normal Inspection Extremities: Nontender, No edema, - - Patient has some scattered palpable lymph nodes that are less than 1 cm in his arms and forearms Skin: Normal color, No rash Neurological: Alert, Oriented x3, Cranial nerves II-XII grossly intact, Normal Strength, Normal Sensation Psychological: Normal affect, - - Anxious Diagnostic/Tx/Re-eval Chest X-Ray - ED: 1 View, Read by ED Physician, Read by Radiologist, No Acute Disease Clinical Impression(s) from Imaging Studies Chest X-Ray 03/29/19 19:45 IMPRESSION: Normal x-ray examination of the chest. Electronically Signed: Gustavo Martino DO at 20:03 EST Tel [phone], Service support , Laboratory Data 03/29/19 03/29/19 03/29/19 20:50 20:50 20:50 WBC 7.6 RBC 5.49 Hgb 15.5 Hct 47.3 MCV 86.2 MCH 28.2 MCHC 32.8 RDW Std Deviation 38.8 RDW Coeff of [place] 12.3 Plt Count 234 MPV 10.5 Immature Gran % (Auto) 0.300 Neut % (Auto) 59.6 Lymph % (Auto) 27.2 [place] % (Auto) 11.8 H Eos % (Auto) 0.8 Baso % (Auto) 0.3 Absolute Neuts (auto) 4.5 Absolute Lymphs (auto) 2.06 Nucleated RBC % 0 D-Dimer Quant (PE/DVT) Sodium 144 Potassium 3.7 Chloride 109 H Carbon Dioxide 28.0 Anion Gap 7 BUN 15 Creatinine 1.14 Estim Creat Clear Calc 93.42 Est GFR (MDRD) Af Amer 101 Est GFR (MDRD) Non-Af 83 BUN/Creatinine Ratio 13.2 Glucose 88 Calcium 9.1 Total Bilirubin 0.20 Direct Bilirubin 0.06 AST 16 ALT 29 Alkaline Phosphatase 73 Troponin I < 0.015 Total Protein 7.9 Albumin 4.3 Globulin 3.6 Lipase 03/29/19 03/29/19 20:50 22:45 WBC RBC Hgb Hct MCV MCH MCHC RDW Std Deviation RDW Coeff of [place]ana Plt Count MPV Immature Gran % (Auto) Neut % (Auto) Lymph % (Auto) [place] % (Auto) Eos % (Auto) Baso % (Auto) Absolute Neuts (auto) Absolute Lymphs (auto) Nucleated RBC % D-Dimer Quant (PE/DVT) 0.28 Sodium Potassium Chloride Carbon Dioxide Anion Gap BUN Creatinine Estim Creat Clear Calc Est GFR (MDRD) Af Amer Est GFR (MDRD) Non-Af BUN/Creatinine Ratio Glucose Calcium Total Bilirubin Direct Bilirubin AST ALT Alkaline Phosphatase Troponin I Total Protein Albumin Globulin Lipase 139 - Rhythm Strip Rhythm Strip: Sinus Tach Rate: 106 Ectopy: None - EKG Initial EKG Interpretation: Sinus Tachycardia, - - Sinus tachycardia at a rate of 106 Normal intervals Normal axis Normal ST segments Compared to prior EKG patient is unchanged - Medical Decision Making Patient is evaluated for worsening chest pain. He states he has been having chest pain for the past year but it is worse. He has appointment to see cardiology for further evaluation of it in the next week or 2. Patient is mildly tachycardic on exam. His exam is otherwise unremarkable. The pain is reproducible with direct palpation of his chest wall. I suspect it is more costochondritis. D-dimer is obtained which is negative. Chest x-rays not show any acute cardiopulmonary process. Is the pain is over his lower ribs I did also add on a lipase and CMP. These are grossly normal. EKG is unremarkable. The exact cause of his pain is not clear however I do think he is safe for outpatient follow-up. Patient is low risk for ACS as well as PE. Patient is counseled on signs and symptoms requiring return the emergency room. He verbalizes agreement understand this plan. He is discharged home in stable condition. ED Disposition - Plan for ED Patient: Disposition: Home or Assisted Living Diagnosis: Chest pain Instructions: CHEST PAIN, Uncertain Cause Referrals: Rajat Marshall MD [Primary Care Provider] - Additional Instructions: Your lab work all came back normal today. I am not sure what the cause of your chest pain is and I do think you are safe to follow-up. You may continue take ibuprofen and Tylenol for your pain. Is very importantly follow-up with a technical mgr.
[2019-03-29 21:47] VITALS: BP 146/79; PULSE 90; RESP 18; O2SAT 96
[2019-03-29 23:01] LABS: Lipase 139 U/L (73-393)
[2019-03-29 23:05] LABS: AST(SGOT) 16 U/L (15-37); Alanine Aminotransfer ALT/SGPT 29 U/L (16-61); Albumin, Serum 4.3 g/dL (3.2-5.0); Alkaline Phosphatase 73 U/L (45-117); Bilirubin, Direct 0.06 mg/dL (0.00-0.30); Globulin 3.6 g/dL (2.2-4.2); Protein, Total 7.9 g/dL (6.4-8.2)
[2019-03-29 23:15] VITALS: BP 147/80; PULSE 92; RESP 17; O2SAT 98
[2019-03-29 23:18] LABS: D-Dimer Quantitative (DVT/PE) 0.28 FEU/ug/m (0.27-0.49)
--- NOTE | 2019-03-30 00:01 | ED.RN ---
pt left prior to getting dc instructions. left without RN taking out IV. called mother who spoke with pt and pt stated he put the iv in the sharps container.
== END 2019-03-30 00:02 | disposition home or self-care (01) ==
PROVIDERS: Emergency Provider Emergency Medicine; Family Provider Family Medicine; PCP Family Medicine
DX: R07.9 Chest pain, unspecified (principal); F41.9 Anxiety disorder, unspecified; F17.200 Nicotine dependence, unspecified, uncomplicated
CPT/HCPCS: 71045; 80048; 80076; 83690; 84484; 85025; 85379; 93005; 99284; A4216

== ENCOUNTER 2019-04-03 23:18 | Emergency (ER) | payer MEDICAID, SELFPAY ==
[2019-04-03 23:19] VITALS: BP 152/96; PULSE 120; RESP 18; TEMP 36.3; O2SAT 97; BMI 34.1
--- NOTE | 2019-04-03 23:53 | EKG12_ITS ---
Test Reason : DYSRHYTHMIA Blood Pressure : / mmHG Vent. Rate : 103 BPM Atrial Rate : 103 BPM P-R Int : 126 ms QRS Dur : 082 ms QT Int : 342 ms P-R-T Axes : 043 052 029 degrees QTc Int : 448 ms Sinus tachycardia Nonspecific T wave abnormality Confirmed by MADELYN GUTIERREZ, DOT ([id number]), business editor MARLYS MATA ([id number] on 04/05/2019 10:58:10 AM Referred By: BB Confirmed By:DOT JOSHI MD
--- NOTE | 2019-04-03 23:54 | ED.DCSUM_ITS ---
History of Present Illness Chief Complaint: Chest Pain Informant: Patient Onset: Hours - 4 Activity at onset: Rest Timing: Intermittent - x1, Lasts - 5 seconds Location: Substernal Current Severity: Gone Maximum Severity: Severe - different than anything I have had before Worsened By: Nothing Relieved By: Nothing Associated Symptoms: Nausea - x 4d, Vomiting. Negative for: Dyspnea, Cough, Fever, Lightheadedness, Palpitations Narrative: Patient starts by telling me he is here in the ER frequently and as a matter fact was here 2 days ago with a lot of the same symptoms including the nausea and his chronic chest discomfort for which she has a follow-up appointment with cardiology. However, today he states he had a severe midsternal chest discomfort that lasted for 5 seconds that he has never had before and completely different from his chronic chest pain and for the pain that he had 2 days ago, which he is also still having in the right ribs, saying that it radiates up toward the central chest and base of his neck and then up the right side of his neck when it occurs, which is also intermittent. He states after this chest discomfort occurred, an hour or so later he started vomiting, although he admits that he has been nauseated for multiple days. He is very anxious. He states he drank a whole bottle of water and I only put out that much urine as he points to a cup of urine with a very small amount in it that appears dark to him. Denies any other new symptoms. Past Medical History - Allergies and Home Meds Allergies/Adverse Reactions: Allergies No Known Allergies Allergy (Verified 03/29/19 19:34) Primary Care Physician: Rajat Marshall MD [Primary Care Provider] - 3-5 Days if not improving Surgical History: noncontributory Smoking Status: Current every day smoker Review of Systems General: Reports: Malaise. Denies: Chills, Fever, Sweats Eyes: Denies: Visual changes - bilaterally, Diplopia ENT: Denies: Rhinorrhea, Sore throat Cardiovascular: Reports: Chest pain. Denies: Palpitations Respiratory: Denies: Dyspnea, Cough, Dyspnea on exertion Gastrointestinal: Reports: Nausea, Vomiting. Denies: Abdominal pain, Diarrhea, Melena, Hematochezia Genitourinary: Denies: Dysuria, Hematuria, Frequency Musculoskeletal: Reports: Neck pain - when chronic chest pain occurs. Denies: Back pain, Swelling, Extremity Pain Skin: Denies: Rash, Wounds Neurological: Reports: Headache - when chronic chest pain occurs. Denies: Weakness, Numbness Physical Exam Vital Signs/Narrative: Vital Signs Temp Pulse Resp BP Pulse Ox 04/03/19 23:19 97.3 F L 120 H 18 152/96 H 97 Inital Vital Signs reviewed: Yes General: Well nourished, Well developed, No Acute Distress Head: Normocephalic, Atraumatic Eyes: Perrl, EOMI ENT: Moist mucous membranes, No rhinorrhea Neck: Supple, Nontender Cardiovascular: Regular rate, Regular rhythm, No murmurs, Tachycardia - mild Respiratory: No distress, CTA bilaterally, Chest nontender, - - equal BS bilat Abdomen: Soft, Nondistended, Normal bowel sounds, No masses, Tender - mild RUQ only; otherwise, benign. Negative for: Guarding, Rebound tenderness Back: Nontender, Normal Inspection Extremities: Nontender, No edema. Negative for: Calf Tenderness Skin: Normal color, No rash, No Trauma Neurological: Alert, Oriented x3, Cranial nerves II-XII grossly intact, Normal Strength, Normal Sensation Psychological: Normal Mood, - - very anxious. pressured speech. Diagnostic/Tx/Re-eval Laboratory Tests 04/04/19 04/04/19 Range/Units 00:59 00:28 Total Bilirubin 0.40 (0.20-1.00) mg/dL Direct Bilirubin 0.13 (0.00-0.30) mg/dL AST 16 (15-37) U/L ALT 31 (16-61) U/L Alkaline Phosphatase 83 (45-117) U/L Total Protein 8.4 H (6.4-8.2) g/dL Albumin 4.4 (3.2-5.0) g/dL Globulin 4.0 (2.2-4.2) g/dL Urine Color Yellow (Yellow) Urine Clarity Clear (Clear) Urine pH 7.0 (5.0 - 8.0) Ur Specific [place] 1.015 (1.002-1.030) Urine Protein 30 H (Negative) mg/dl Urine Glucose (UA) Normal (Normal) mg/dl Urine Ketones 150 H (Negative) mg/dl Urine Occult Blood 10 H (Negative) /ul Urine Nitrite Negative (Negative) Urine Bilirubin Negative (Negative) mg/dL Urine Urobilinogen 1 H (Normal) mg/dl Ur Leukocyte Esterase 25 H (Negative) /ul Urine RBC 0 SEEN (0-5) /hpf Urine WBC 0 SEEN (0-5) /hpf Ur Squamous Epith Cells 0 SEEN (0-5) /hpf Urine Bacteria 1+ (None Seen) /hpf Urine Mucus 0 SEEN (<or=2+) /hpf - Rhythm Strip Rhythm Strip: Sinus Tach Rate: 103 Ectopy: None - EKG Initial EKG Interpretation: No Acute Injury Pattern, Sinus Tachycardia Prior: Unchanged Treatment: GI Cocktail - refused by pt, - - ativan, zofran - Medical Decision Making His EKG is unchanged. Since he had some mild tenderness in his right upper quadrant, which may actually be musculoskeletal in relation to the chronic pain that he points to the right lower anterior rib cage may be causing, his liver enzymes are still normal as they were 2 days ago. His urinalysis shows starvation ketosis, a specific gravity that is 1.015, and otherwise unremarkable. I see no reason to repeat a chest x-ray, he wants me to shoot pictures to see what is wrong. As I discussed with him, I do not think he has any life-threatening emergency and her job tonight is to rule out life-threatening problems and to try to get him feeling better which we did with medications although he refused part of them. He is discharged in stable condition. ED Disposition - Plan for ED Patient: Disposition: Home or Assisted Living Diagnosis: Chest pain, unspecified, Gastritis Instructions: CHEST PAIN, NonCardiac, GASTRITIS (Adult) Prescriptions: proMETHazine tablet [Phenergan] 25 mg PO Q6H PRN PRN #10 tab PRN Reason: Nausea Prescription Printed Ranitidine [Zantac] 150 mg PO BID #28 tab Prescription Printed Referrals: Rajat Marshall MD [Primary Care Provider] - 3-5 Days if not improving
[2019-04-04] MEDS: LORazepam 1 MG Tablet PO (00:10)
[2019-04-04] MEDS: Ondansetron ODT 4 MG Tablet 8 MG PO (00:10)
[2019-04-04 00:59] LABS: AST(SGOT) 16 U/L (15-37); Alanine Aminotransfer ALT/SGPT 31 U/L (16-61); Albumin, Serum 4.4 g/dL (3.2-5.0); Alkaline Phosphatase 83 U/L (45-117); Bilirubin, Direct 0.13 mg/dL (0.00-0.30); Protein, Total 8.4 g/dL (6.4-8.2)
[2019-04-04 01:06] LABS: Mucous, Urine 0 SEEN /hpf (<or=2+); Red Blood Cells-Urine 0 SEEN /hpf (0-5); Squamous Epithelial Cells - UA 0 SEEN /hpf (0-5); White Blood Cells 0 SEEN /hpf (0-5)
[2019-04-04 01:07] LABS: Color, Urine Yellow (Yellow); Glucose, Dipstick Normal (Normal); Leukocyte Esterase-Dipstick 25 /ul (Negative); Nitrite-Dipstick Negative (Negative); Occult Blood-Urine 10 /ul (Negative); Protein-Dipstick 30 mg/dl (Negative); Specific Gravity, Urine 1.015 (1.002-1.030); Urine Bilirubin Dipstick Negative (Negative); Urine Clarity Clear (Clear); Urine Urobilinogen 1 mg/dl (Normal)
[2019-04-04 01:09] LABS: Ketone-Dipstick 150 mg/dl (Negative)
[2019-04-04 01:19] VITALS: BP 121/91; PULSE 112; RESP 16; O2SAT 98
[2019-04-04 01:29] LABS: Bacteria 1+ /hpf (None Seen)
[2019-04-04 01:40] VITALS: BP 121/91; PULSE 111; RESP 16; O2SAT 98
== END 2019-04-04 01:40 | disposition home or self-care (01) ==
PROVIDERS: Emergency Provider Emergency Medicine; Family Provider Family Medicine; PCP Family Medicine
DX: R07.9 Chest pain, unspecified (principal); K29.70 Gastritis, unspecified, without bleeding; F17.200 Nicotine dependence, unspecified, uncomplicated
CPT/HCPCS: 80076; 81001; 93005; 99283; J7030; A4216

== ENCOUNTER 2019-04-18 01:33 | Emergency (ER) | payer MEDICAID, SELFPAY ==
[2019-04-18 01:34] VITALS: BP 155/93; PULSE 99; RESP 12; TEMP 37; O2SAT 99; BMI 32.4
--- NOTE | 2019-04-18 02:14 | CT_ITS ---
STUDY: CTA HEAD AND NECK WITH CONTRAST REASON FOR EXAM: Male, 23 years old. HEADACHE, DIZZINESS. CP X SEVERAL HOURS. RADIATION DOSAGE (If Supplied By Facility): CTDIvol = ( 37.13 ) mGy, DLP = ( 1626.04 ) mGycm TECHNIQUE: CT angiography was performed with a multi-detector CT scanner. Data acquisition was obtained from the skull base through the vertex following intravenous administration of IV 100 ML ISOVUE 300. MIP images were reconstructed from the axial data set. Post-processing of the angiographic images was performed, with multiplanar reformation and 3D reconstruction. Individualized dose optimization techniques were used for this CT. COMPARISON: No relevant priors. FINDINGS: Normal bilateral petrous carotid arteries. Normal right cavernous carotid artery with a normal supraclinoid bifurcation. Normal left cavernous carotid artery with a normal supraclinoid bifurcation. Normal right A1 segments of the anterior cerebral artery. Normal left A1 segments of the anterior cerebral artery. Normal intact anterior communicating artery (ACOM). Normal bilateral A2 segments of the anterior cerebral arteries. Normal right M1 and M2 segments of the middle cerebral arteries, with a normal M1 bifurcation. Normal left M1 and M2 segments of the middle cerebral arteries, with a normal M1 bifurcation. Normal right posterior communicating artery (PCOM). Normal left posterior communicating artery (PCOM). Normal bilateral vertebral arteries. Normal basilar artery with a normal basilar bifurcation. The visualized bilateral superior cerebellar (SCA) arteries are normal. Normal bilateral P1, P2 and visualized P3 segments of the posterior cerebral arteries. There is no demonstrated aneurysm of the [place] of [place]. There is no demonstrated abnormality of the visualized brain. AORTIC ARCH: Normal visualized aortic arch. Normal origins of the brachiocephalic, left common carotid, and left subclavian arteries. RIGHT CAROTID ARTERIES: Normal right common carotid artery (CCA). Normal right common carotid bulb. Normal origin of the right internal carotid (ICA) artery without a hemodynamically significant stenosis. Normal visualized cervical portion of the right internal carotid artery. Normal origin of the right external carotid artery (ECA). LEFT CAROTID ARTERIES: Normal left common carotid artery (CCA). Normal left common carotid bulb. Normal origin of the left internal carotid (ICA) artery without a hemodynamically significant stenosis. Normal visualized cervical portion of the left internal carotid artery. Normal origin of the left external carotid artery (ECA). VERTEBRAL ARTERIES: Normal bilateral vertebral arteries. CT/CTA Head AND Neck W/ Contrast IMPRESSION: Normal CTA Head and neck with contrast. Electronically Signed: Misty Washington MD at 3:41 EST , Service support ,
[2019-04-18] MEDS: diazePAM 5 MG Tablet PO (02:23)
--- NOTE | 2019-04-18 02:23 | EKG12_ITS ---
Test Reason : CP Blood Pressure : / mmHG Vent. Rate : 094 BPM Atrial Rate : 094 BPM P-R Int : 138 ms QRS Dur : 090 ms QT Int : 368 ms P-R-T Axes : 062 062 051 degrees QTc Int : 460 ms Normal sinus rhythm Normal ECG Confirmed by MADELYN GUTIERREZ, DOT ([id number]), video effects editor MELODY RUANO ([id number]) on 04/19/2019 10:03:41 AM Referred By: OTTO Confirmed By:DOT JOSHI MD
[2019-04-18] MEDS: 0.9% Normal Saline 1,000 ML 1000 ML IV (02:26)
[2019-04-18 02:33] VITALS: BP 115/76; PULSE 80; RESP 16; O2SAT 98
[2019-04-18 02:33] LABS: CPK Total, Creatine Kinase 84 U/L (39-308)
[2019-04-18 04:00] VITALS: BP 110/53; PULSE 84; RESP 18; O2SAT 99
--- NOTE | 2019-04-18 04:22 | ED.DCSUM_ITS ---
History of Present Illness Chief Complaint: Chest Pain Informant: Patient Onset: Weeks Context: Gradual Onset Timing: Continuous Narrative: Patient is a 23-year-old male with history of anxiety and chronic chest pain pre senting with chest pain as well as headache/neck pain. Patient initially states he has had neck stiffness and headache for the past 2 weeks with a goes on to say is been closer to a month. He states it radiates down his entire back. Last night he had an episode where he woke up from sleep but felt like he could not move his body or speak. This resolved after couple minutes. He states he felt very anxious after the episode. He also notes has had some vision changes in his left eye. Patient went to [place] emergency room earlier this evening where he had an evaluation including blood work, flu swab, Monospot and a CT of his brain records were obtained and his work-up was grossly negative. Patient was offered Valium for his back and neck pain as it was felt to be muscle skeletal however patient declined stating he had to drive. Patient was given 1 dose of Zofran. When patient went home he fell asleep and then woke up with a weird sensation in his head and was breathing heavily. Patient girlfriend did not want to do so they brought him to the emergency room for reevaluation. Patient is an episode of vomiting 1 week ago and he had some fevers a couple days ago up to 100.2. He has had associated sweats. Patient did a 600 mg ibuprofen about 2 hours prior to arrival. Patient is supposed to be on Prozac but only took 2 doses and stopped because he did not like the way it made him feel. Patient denies any associated bowel or bladder incontinence. He denies any perineal numbness. He denies any history of alcohol or drug use. He denies any other complaints at this time. Patient has had increased stress at home as his sister 1 month ago. Past Medical History - Allergies and Home Meds Allergies/Adverse Reactions: Allergies No Known Allergies Allergy (Verified 04/18/19 01:40) Primary Care Physician: Rajat Marshall MD [Primary Care Provider] - Past Medical History: - - Anxiety, chronic chest pain Surgical History: noncontributory Lives: Spouse/ Significant Other Smoking Status: Current every day smoker Review of Systems General: Reports: Chills, Fever, Malaise, Subjective, Sweats Eyes: Reports: Visual changes - left. Denies: Diplopia ENT: Reports: Bilateral ear pain. Denies: Rhinorrhea, Sore throat Cardiovascular: Reports: Chest pain. Denies: Palpitations Respiratory: Denies: Dyspnea, Cough, Dyspnea on exertion Gastrointestinal: Reports: Nausea, Vomiting. Denies: Abdominal pain, Diarrhea, Melena, Hematochezia Genitourinary: Denies: Dysuria, Hematuria, Frequency Musculoskeletal: Reports: Neck pain, Back pain. Denies: Extremity Pain Skin: Denies: Rash, Wounds Neurological: Denies: Headache, Weakness, Numbness Psych: Reports: Anxiety Physical Exam Vital Signs/Narrative: Vital Signs Temp Pulse Resp BP Pulse Ox 04/18/19 02:33 80 16 115/76 98 04/18/19 01:34 98.6 F 99 12 155/93 H 99 Inital Vital Signs reviewed: Yes General: Well nourished, Well developed, No Acute Distress Head: Normocephalic, Atraumatic Eyes: Perrl, EOMI ENT: Moist mucous membranes, No rhinorrhea, TM's clear Neck: Supple, Nontender, No JVD, - - No nuchal rigidity or meningeal signs Cardiovascular: Regular rate, Regular rhythm, No murmurs Respiratory: No distress, CTA bilaterally, Chest nontender Abdomen: Soft, Nontender, Nondistended, Normal bowel sounds Back: Normal Inspection, - - Diffuse paraspinal tenderness to palpation spanning cervical, thoracic and lumbar spine, no pinpoint area of tenderness. No step- off signs. Patient is able to move around the bed easily as well as sit up.. Negative for: Spinal tenderness Extremities: Nontender, No edema Skin: Normal color, No rash Neurological: Alert, Oriented x3, Cranial nerves II-XII grossly intact, Normal Strength, Normal Sensation, - - Normal [id number] Psychological: Normal affect, Depressed Diagnostic/Tx/Re-eval Clinical Impression(s) from Imaging Studies Head/Neck CTA 04/18/19 02:14 IMPRESSION: Normal CTA Head and neck with contrast. Electronically Signed: Misty Washington MD at 3:41 EST , Service support , Laboratory Data 04/18/19 04/18/19 01:40 01:40 Total Creatine Kinase 84 Troponin I < 0.015 Results from outside hospital obtained at 1725 on 04/17/2019 including CMP, lipase, CBC and CT brain are obtained off of [facility] and reviewed. These were all grossly normal. Delta troponin negative x2. Flu swab negative. - Rhythm Strip Rhythm Strip: Sinus Rhythm Rate: 94 Ectopy: None - EKG Initial EKG Interpretation: Sinus Rhythm, - - Sinus rhythm at a rate of [address] segments Normal axis - Medical Decision Making Patient is evaluated for chest pain as well as headache. He has had chronic chest pain off and on for the past year, has had evaluation by cardiology as well as neurology. Patient has his chronic chest pain but is also point of headache. 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 These results are reviewed through [facility]. As I am able to see the results I do not think repeat head CT, CBC, flu swab or CMP is indicated. Patient is having a lot of body aches I did check a CPK. This was negative. EKG and troponin are both normal. Patient is given Valium as I believe his back pain and headaches are actually musculoskeletal. Patient does have improvement of his chest pain and back pain with the Valium. He initially refuses migraine cocktail including IV Compazine stating he does not like IV medications. He does consent to taking the medications orally. He is given oral Benadryl and Compazine. Patient took 600 mg of ibuprofen prior to arrival so he is not given an NSAID. Patient does not have meningeal signs. He has had his headache and neck pain for weeks. He has a normal neurologic exam. His NIH is 0. Given the chronicity of his symptoms I do not think further imaging emergently is indicated. I do suspect there is an underlying psychiatric component as patient has untreated anxiety and also had the loss of his sister within the last month. Patient is counseled he needs to follow-up with his primary care doctor. On reevaluation patient states his headache is now improving. He will be discharged home with a course of Valium. Patient is counseled on signs and symptoms requiring return to the emergency room. Patient verbalizes agreement and understand this plan. Patient discharged home in stable and improved condition. ED Disposition - Plan for ED Patient: Disposition: Home or Assisted Living Diagnosis: Headache Instructions: CHEST PAIN, NonCardiac, HEADACHE, Unspecified, Understanding Anxiety Disorders Prescriptions: Diazepam [Valium] 5 mg PO TID PRN PRN #12 tablet PRN Reason: Muscle Spasm Transmission Status: Sent to [id number] Referrals: Rajat Marshall MD [Primary Care Provider] - Additional Instructions: Results from earlier today were reviewed as well as repeat troponin and CPK level. These were all normal. Your EKG was normal. I suspect all of your symptoms are from muscle spasms in your back. I do not think you have meningitis. Please follow-up with your primary care doctor for further evaluation.
[2019-04-18] MEDS: proCHLORPERazine 5 MG Tablet 10 MG PO (04:48)
[2019-04-18] MEDS: DiphenhydrAMINE 25 MG Capsule 50 MG PO (04:48)
[2019-04-18 05:00] VITALS: BP 102/50; PULSE 77; RESP 16; O2SAT 96
[2019-04-18 05:48] VITALS: BP 102/50; PULSE 80; RESP 15; O2SAT 97
== END 2019-04-18 05:50 | disposition home or self-care (01) ==
PROVIDERS: Emergency Provider Emergency Medicine; PCP Family Medicine
DX: R07.89 Other chest pain (principal); R51 Headache; F41.9 Anxiety disorder, unspecified; F17.200 Nicotine dependence, unspecified, uncomplicated
CPT/HCPCS: 70496; 70498; 82550; 84484; 93005; 96360; 99285; J7030; Q9967; A4216

== ENCOUNTER 2019-05-29 00:58 | Emergency (ER) | payer MEDICAID, SELFPAY ==
[2019-05-29 01:01] VITALS: BP 140/89; PULSE 87; RESP 16; TEMP 36.8; O2SAT 98; BMI 30.4
--- NOTE | 2019-05-29 01:27 | CT_ITS ---
STUDY: CT BRAIN WITHOUT CONTRAST REASON FOR EXAM: Male, 24 years old. SAL, DIPLOPIA, BLOODY NOSE, DOUBLE VISION, EYE PAIN, BILATERAL EAR PAIN RADIATION DOSAGE (If Supplied By Facility): CTDIvol = ( 44.99 ) mGy, DLP = ( 846.73 ) mGycm TECHNIQUE: Transaxial CT imaging of the brain was performed without administration of intravenous contrast material. Individualized dose optimization techniques were used for this CT. COMPARISON: February 23, 2019 FINDINGS: Normal soft tissue structures. Normal calvarium. Normal size ventricles and extra-axial spaces for the patient''s age. Normal white matter tracts of the cerebral hemispheres. Normal basal ganglia and thalami. Normal brainstem. Normal cerebellum. There is no intracranial hemorrhage. There are no findings of an acute ischemic infarction. Normal visualized paranasal sinuses. CT/Brain/Head without Contrast IMPRESSION: Normal unenhanced CT scan of the brain. Electronically Signed: Collins Ramírez, at 2:47 EST Tel , Service support ,
--- NOTE | 2019-05-29 01:28 | ED.VIS.URI ---
History of Present Illness Chief Complaint: General Illness Detail of Chief Complaint: multiple complaints -- see below Informant: Patient Onset: Days - 2 Context: Gradual Onset Timing: Continuous Quality: ear pain. headache. Location: left. all over. Current Severity: Moderate Maximum Severity: Moderate Worsened by: - - nothing Relieved by: - - nothing. Not Relieved By: NSAIDs Associated Symptoms: Headache, Shortness of Breath - due to throat swelling without pain. Negative for: Nasal Congestion, Sinus Pressure, Nausea, Vomiting, Diarrhea, Chest Pain, Nonproductive cough, Productive Cough Narrative: Patient states 1 to 2 weeks ago he had some type of left ear infection where there was pus coming out of it, he was put on an oral antibiotic that he finished, but he has had difficulty hearing out of that ear ever since. He noticed some pus and/or bloody discharge on his pillow from that ear within the past 2 nights, his ear still hurting. He states his doctor is writing him off so he came to the ER for evaluation of this and multiple other symptoms. He feels like his throat is swollen and it is difficult to breathe sometimes specially if he lies down, however he has not been truly dyspneic. He denies any odynophagia. He denies any sinus pain or congestion. No fevers. He states he has chronic neck pain because of degenerative disc disease and wonders if that is what is causing his headache but he states this headache is a lot worse than his usual ones, but not necessarily different in symptom quality. He states today not long prior to arrival he had a bloody nose from the left side only, he put some toilet paper in it and eventually it stopped minutes later. He became very concerned about that and thinks he has a brain problem. He has been walking normally. Denies any problems neurologically in his arms or legs. He states he recently was treated for an anxiety problem. Past Medical History - Allergies and Home Meds Allergies/Adverse Reactions: Allergies No Known Allergies Allergy (Verified 05/29/19 01:00) Primary Care Physician: Rajat Marshall MD [Primary Care Provider] - 1 Week if not improving (And/or ENT as scheduled) Surgical History: noncontributory Lives: Spouse/ Significant Other Smoking Status: Never smoker Alcohol: None Review of Systems General: Denies: Chills, Fever, Sweats Eyes: Reports: Diplopia - At times. Denies: Visual changes - bilaterally ENT: Reports: Left ear pain, - - Throat swelling, - - Left epistaxis today, resolved. Denies: Rhinorrhea, Sore throat Cardiovascular: Denies: Chest pain, Palpitations Respiratory: Denies: Dyspnea, Cough, Dyspnea on exertion Gastrointestinal: Denies: Abdominal pain, Nausea, Vomiting, Diarrhea, Melena, Hematochezia Genitourinary: Denies: Dysuria, Hematuria, Frequency Musculoskeletal: Denies: Back pain, Swelling, Extremity Pain Skin: Denies: Rash, Wounds Neurological: Reports: Headache. Denies: Weakness, Numbness Physical Exam Vital Signs/Narrative: Vital Signs Temp Pulse Resp BP Pulse Ox 05/29/19 01:01 98.2 F 87 16 140/89 H 98 Inital Vital Signs reviewed: Yes General: Well nourished, Well developed Head: Normocephalic, Atraumatic. Negative for: Sinus Tenderness Eyes: Perrl, EOMI - Without pain or entrapment, - - Normal conjunctivae Ears: Normal external canal, TM's clear. Negative for: Pain with Movement of Right Tragus, Pain with Movement of Left Tragus, Right Mastoid Tenderness, Left Mastoid Tenderness Nose: Normal Inspection, No Rhinorrhea, - - Raw mucosa left septum without blood or active bleeding present. Negative for: Congestion, Purulent Drainage Mouth/Throat: Normal Inspection, No Posterior Erythema, Airway Patent, - - Limited evaluation of posterior oropharynx due to patient withdrawing when I attempt to inspect with a tongue depressor which he is unable to allow me to use as I instructed him to. However, he has no asymmetry and his uvula is obviously edematous. Tonsils: Negative for: Right Tonsilar Exudates, Left Tonsilar Exudates, Right Tonsilar Swelling, Left Tonsilar Swelling Neck: Supple - Full range of motion without any apparent difficulty., Nontender, No Lymphadenopathy, No Meningismus Skin: Normal color, No rash, No Trauma Neurological: Alert, Oriented x3, Cranial nerves II-XII grossly intact, Normal Strength, Normal Sensation, Normal Gait Psychological: - - Anxious. Diagnostic/Tx/Re-eval Clinical Impression(s) from Imaging Studies Brain CT 05/29/19 01:27 IMPRESSION: Normal unenhanced CT scan of the brain. Electronically Signed: Collins Ramírez, at 2:47 EST Tel , Service support , - Medical Decision Making The patient wants a CT scan. We discussed the limitations of that. He wants to know if he has encephalitis, meningitis, I do not think he is examining like any of those things and I do not think he needs an LP at this time and I discussed why that was my opinion to him. I am okay obtaining a CT scan. That was done and unremarkable. The patient was given Decadron and Reglan injections since he just had ibuprofen we held off on Toradol, I think supportive care and symptom control is not unreasonable at this time. I discussed with him that there is a high prevalence of viral illnesses at this time, and it is winter, the area is dry, and I really do not think he had a nosebleed for any dangerous reason. His ears look normal and showed no signs of any external or middle ear infection. Uvulitis is usually caused by viruses, especially in someone who does not drink any alcohol. Supportive care advised for that, which I reassured him is not dangerous, just uncomfortable. I advised him to follow-up with otolaryngology for his trouble hearing in his left ear, he states he already has an appointment. ED Disposition - Plan for ED Patient: Disposition: Home or Assisted Living Diagnosis: Left ear hearing loss, Acute anterior epistaxis, Uvulitis Instructions: Uvulitis Referrals: Rajat Marshall MD [Primary Care Provider] - 1 Week if not improving (And/or ENT as scheduled)
[2019-05-29] MEDS: Metoclopramide 10 MG/2 ML Vial IM (02:03)
[2019-05-29] MEDS: dexAMETHasone 10 MG/ML Vial IM (02:04)
[2019-05-29 02:56] VITALS: RESP 14
--- NOTE | 2019-06-21 14:36 | CM.ED ---
Social Work Patient ED Care Plan has been approved. Telephone call to patient, updated patient on ED Care Plan being developed and explained ED Care Plan process/reason. Patient voicing understanding. Confirmed mailing address as [address] [place], [place] [id number]. ED Care Plan mailed. Tracking number: [id number] ED Care Plan Entered. Hung POLANCO, MANUEL
== END 2019-05-29 02:56 | disposition home or self-care (01) ==
PROVIDERS: Emergency Provider Emergency Medicine; PCP Family Medicine
DX: H91.92 Unspecified hearing loss, left ear (principal); R04.0 Epistaxis; K12.2 Cellulitis and abscess of mouth
CPT/HCPCS: 70450; 96372; 99283

== ENCOUNTER 2019-07-23 20:54 | Emergency (ER) | payer MEDICAID, SELFPAY ==
[2019-07-23 20:55] VITALS: BP 141/98; PULSE 87; RESP 16; TEMP 36.6; O2SAT 98; BMI 35.1
[2019-07-23 21:14] VITALS: O2SAT 98
--- NOTE | 2019-07-23 21:17 | EKG12_ITS ---
Test Reason : SOB Blood Pressure : / mmHG Vent. Rate : 073 BPM Atrial Rate : 073 BPM P-R Int : 120 ms QRS Dur : 094 ms QT Int : 386 ms P-R-T Axes : 035 052 042 degrees QTc Int : 425 ms Normal sinus rhythm with sinus arrhythmia Normal ECG Confirmed by MONA FLORES ([id number]), movie editor MARLYS MATA ([id number]) on 07/28/2019 10:28:58 AM Referred By: MR Confirmed By:MONA FLORES
--- NOTE | 2019-07-23 21:17 | RAD_ITS ---
STUDY: X-RAY CHEST REASON FOR EXAM: Male, 24 years old. pt arrives to ed with foreign body feeling in his throat that is causing sob. TECHNIQUE: 1 view COMPARISON: Prior chest radiograph from March 29, 2019 FINDINGS: The lungs are clear and expanded. There is no demonstrated pleural abnormality. Normal size heart. Normal mediastinum and ami. Normal visualized pulmonary arteries. Normal visualized aortic arch and descending thoracic aorta. Normal visualized thoracic spine. Normal visualized ribs, clavicles, and shoulders. There is no demonstrated abnormality of the visualized soft tissue structures of the upper abdomen. RAD/Chest 1 View (Portable) IMPRESSION: Normal x-ray examination of the chest. Electronically Signed: Rosana Wellington MD at 21:46 EDT , Service support ,
[2019-07-23] MEDS: hydrOXYzine PAM 25 MG Capsule PO (21:30)
--- NOTE | 2019-07-23 22:14 | ED.VIS.CHEST ---
History of Present Illness Chief Complaint: Shortness of Breath Informant: Patient Narrative: Patient presenting for evaluation secondary to chest pain and lip swelling. Patient has multiple prior visits for similar complaints. Patient reports that he intermittently deals with chest pain and he currently is undergoing work-up with a business intelligence architect for this. Patient reports that tonight he had chest pain that radiated up into his jaw, this was not really inducible by anything but it was associated with some swelling of his lip and a tightness feeling in his throat. Patient denies any recent new exposures or foods. Past Medical History - Allergies and Home Meds Allergies/Adverse Reactions: Allergies No Known Allergies Allergy (Verified 07/23/19 20:57) Primary Care Physician: Rajat Marshall MD [Primary Care Provider] - Past Medical History: - - Anxiety Surgical History: noncontributory Smoking Status: Current every day smoker Review of Systems General: Denies: Chills, Fever, Sweats Eyes: Denies: Visual changes - bilaterally, Diplopia ENT: Denies: Rhinorrhea, Sore throat Cardiovascular: Reports: Chest pain Respiratory: Denies: Dyspnea, Cough, Dyspnea on exertion Gastrointestinal: Denies: Abdominal pain, Nausea, Vomiting, Diarrhea, Melena, Hematochezia Genitourinary: Denies: Dysuria, Hematuria, Frequency Musculoskeletal: Denies: Back pain, Extremity Pain Skin: Denies: Rash, Wounds Neurological: Denies: Headache, Weakness, Numbness Physical Exam Vital Signs/Narrative: Vital Signs Temp Pulse Resp BP Pulse Ox 07/23/19 20:55 97.9 F 87 16 141/98 H 98 Inital Vital Signs reviewed: Yes General: Well nourished, Well developed, No Acute Distress Head: Normocephalic, Atraumatic Eyes: Perrl, EOMI ENT: Moist mucous membranes, No rhinorrhea, - - No objective evidence of lip or tongue swelling Neck: Supple, Nontender Cardiovascular: Regular rate, Regular rhythm, No murmurs Respiratory: No distress, CTA bilaterally, Chest nontender Abdomen: Soft, Nontender, Nondistended, Normal bowel sounds Back: Nontender, Normal Inspection Extremities: Nontender, No edema Skin: Normal color, No rash Neurological: Alert, Oriented x3, Cranial nerves II-XII grossly intact, Normal Strength, Normal Sensation Psychological: - - Anxious Diagnostic/Tx/Re-eval - EKG Initial EKG Interpretation: - - Sinus rhythm at [address] segments normal T waves normal [place] and QTc intervals no evidence of acute ischemia or arrhythmia - Medical Decision Making Patient presented secondary to chest pain. He was complaining of lip swelling, but I did not see any sort of objective lip or tongue swelling. He has had multiple prior similar presentations with negative work-ups at all feels laboratory work-up is indicated. EKG and chest x-ray by my personal interpretation found to be unremarkable. Patient was given Vistaril and had improvement. Patient was complaining of some postnasal drip, will be given Flonase. ED Disposition - Plan for ED Patient: Disposition: Home or Assisted Living Diagnosis: Chest pain Instructions: ED Chest Pain NonCardiac Prescriptions: Fluticasone 0.05% [Flonase Nasal [place]] 1 spray NASAL DAILY #1 nasal.sry Prescription Printed Referrals: Rajat Marshall MD [Primary Care Provider] - As Needed
[2019-07-23 22:22] VITALS: BP 138/76; PULSE 78; RESP 19; O2SAT 98
== END 2019-07-23 22:23 | disposition home or self-care (01) ==
PROVIDERS: Emergency Provider Emergency Medicine; PCP Family Medicine
DX: R07.9 Chest pain, unspecified (principal); R09.82 Postnasal drip; F17.200 Nicotine dependence, unspecified, uncomplicated
CPT/HCPCS: 71045; 93005; 99283

== ENCOUNTER 2019-10-03 23:20 | Emergency (ER) | payer MEDICAID, SELFPAY ==
[2019-10-03 23:20] VITALS: BP 155/88; PULSE 105; RESP 20; TEMP 36.6; O2SAT 96; BMI 32.3
--- NOTE | 2019-10-03 23:28 | ED.RN ---
CALLED FOR EKG PER RN REQUEST, PULLED OLD EKG FOR
--- NOTE | 2019-10-03 23:34 | EKG12_ITS ---
Test Reason : GEN ILL Blood Pressure : / mmHG Vent. Rate : 088 BPM Atrial Rate : 088 BPM P-R Int : 124 ms QRS Dur : 086 ms QT Int : 368 ms P-R-T Axes : 034 053 037 degrees QTc Int : 445 ms Poor data quality, interpretation may be adversely affected Normal sinus rhythm Normal ECG Confirmed by ALEJANDRINA GUTIERREZ, TANIA ([id number]), editor managing director MELODY RUANO ([id number]) on 10/05/2019 1:22:59 PM Referred By: AMINA Confirmed By:TANIA TINOCO MD
--- NOTE | 2019-10-03 23:34 | RAD_ITS ---
STUDY: X-RAY CHEST REASON FOR EXAM: Male, 24 years old. Cough and sob x 3 months TECHNIQUE: PA and lateral views of the chest. COMPARISON: July 23, 2019 chest x-ray FINDINGS: The lungs are clear and expanded. There is no demonstrated pleural abnormality. Normal size heart. There are calcified mediastinal lymph nodes. Normal visualized pulmonary arteries. Normal visualized aortic arch and descending thoracic aorta. Normal visualized thoracic spine. Normal visualized ribs, clavicles, and shoulders. There is no demonstrated abnormality of the visualized soft tissue structures of the upper abdomen. RAD/Chest PA and Lateral IMPRESSION: No visualized acute focal infiltrate. Electronically Signed: Harini Patel MD at 0:18 EDT Tel , Service support ,
--- NOTE | 2019-10-03 23:35 | ED.DCSUM_ITS ---
History of Present Illness Chief Complaint: General Illness Detail of Chief Complaint: Cough, shortness of breath, chest pain Informant: Patient Onset: Month(s) Context: Gradual Onset Timing: Waxes and wanes Current Severity: Moderate Maximum Severity: Moderate Narrative: Patient presents secondary to cough that is been ongoing for several months. He states he had right lateral rib pain for a while. It seemed to improve but returned again 2 weeks ago. He is bringing up thick clear mucus. Patient denies fever but has had some chills. He states he is scheduled to see a pediatric neurologist later this week. He is also complaining of some abdominal pain and back pain. He states his bowels have been abnormal. Past Medical History - Allergies and Home Meds Allergies/Adverse Reactions: Allergies No Known Allergies Allergy (Verified 10/03/19 23:24) Primary Care Physician: Rajat Marshall MD [Primary Care Provider] - Surgical History: noncontributory Lives: Spouse/ Significant Other Smoking Status: Current every day smoker Review of Systems General: Reports: Chills. Denies: Fever Eyes: Denies: Visual changes - bilaterally ENT: Denies: Bilateral ear pain Cardiovascular: Reports: Chest pain Respiratory: Reports: Dyspnea, Cough, Sputum Gastrointestinal: Reports: Abdominal pain, - - Abnormal color to bowel movements. Genitourinary: Denies: Dysuria, Frequency Musculoskeletal: Denies: Swelling, Extremity Pain Skin: Denies: Rash Neurological: Denies: Headache Hematologic: Denies: Easy bruising Allergy: Denies: Uticaria Physical Exam Vital Signs/Narrative: Vital Signs Temp Pulse Resp BP Pulse Ox 10/03/19 23:20 98 F 105 H 20 H 155/88 H 96 Inital Vital Signs reviewed: Yes General: Well nourished, Well developed Head: Normocephalic ENT: Moist mucous membranes Neck: Supple Cardiovascular: Regular rate, Regular rhythm Respiratory: No distress, CTA bilaterally Abdomen: Soft, Nontender Back: Nontender Extremities: Nontender Skin: Normal color Neurological: Alert, Oriented x3 Psychological: Normal affect Diagnostic/Tx/Re-eval Impressions Chest X-Ray 10/03/19 23:34 IMPRESSION: No visualized acute focal infiltrate. Electronically Signed: Harini Patel MD at 0:18 EDT Tel , Service support , 10/03/19 23:34 Chest PA and Lateral [RAD] Stat Laboratory Results 10/03/19 10/03/19 10/03/19 23:50 23:50 23:50 WBC 6.9 RBC 5.21 Hgb 14.6 Hct 45.1 MCV 86.6 MCH 28.0 MCHC 32.4 RDW Std Deviation 39.5 RDW Coeff of Tawana 12.6 Plt Count 233 MPV 10.4 Immature Gran % (Auto) 0.300 Neut % (Auto) 59.8 Lymph % (Auto) 25.9 [place] % (Auto) 12.9 H Eos % (Auto) 0.7 Baso % (Auto) 0.4 Absolute Neuts (auto) 4.1 Absolute Lymphs (auto) 1.79 Nucleated RBC % 0 D-Dimer Quant (PE/DVT) <= 0.27 Sodium 139 Potassium 3.5 Chloride 107 Carbon Dioxide 26.0 Anion Gap 6 BUN 16 Creatinine 1.01 Estim Creat Clear Calc 108.17 Est GFR (MDRD) Af Amer 115 Est GFR (MDRD) Non-Af 95 BUN/Creatinine Ratio 15.8 Glucose 120 H Calcium 8.6 Total Bilirubin 0.40 Direct Bilirubin 0.11 AST 18 ALT 45 Alkaline Phosphatase 82 Troponin I < 0.015 Total Protein 7.9 Albumin 4.0 Globulin 3.9 Lipase 96 - EKG Initial EKG Interpretation: Sinus Rhythm - Sinus 88 with no acute ischemia. - Medical Decision Making Patient was given Toradol here. He has had several month history of cough and is scheduled to see pulmonology at [facility] this week. He now has pleuritic pain in the right lower chest. LFTs and lipase are all normal. We will treat him with a short burst of steroids for pleurisy. First dose is given here and prescription sent to the pharmacy for him. ED Disposition - Plan for ED Patient: Disposition: Home or Assisted Living Diagnosis: Pleurisy Instructions: ED Chest Pain Pleurisy Prescriptions: Prednisone [Deltasone] 40 mg PO DAILY #10 tab Transmission Status: Pending to [facility][phone] Referrals: Rajat Marshall MD [Primary Care Provider] - Additional Instructions: Follow-up with pulmonology this week as scheduled.
[2019-10-03 23:50] VITALS: BP 155/88; PULSE 105; RESP 17; TEMP 36.6; O2SAT 98
[2019-10-03] MEDS: Ketorolac 30 MG/ML Syringe IV (23:51)
[2019-10-03] MEDS: 0.9% Normal Saline 1,000 ML 150 ML IV (23:51)
[2019-10-04 00:01] LABS: Absolute Lymphocyte Count 1.79 X10^3/uL (0.83-4.51); Absolute Neutrophil Count 4.1 X10^3/uL (2.0-7.7); Basophil# 0.03 X10^3/uL; Basophil% 0.4 % (0-1); Eosinophil# 0.05 X10^3/uL; Eosinophils% 0.7 % (0-5); Hematocrit 45.1 % (40-54); Hemoglobin 14.6 g/dL (13.0-16.5); Lymphocyte # 1.79 X10^3/ul (4.0); Lymphocyte % 25.9 % (19-41); Mean Corp Hgb Conc 32.4 g/dL (32-36); Mean Corpuscular Volume 86.6 fL (80-94); Mean Platelet Vol. 10.4 fl (6.2-12.0); Monocyte# 0.89 X10^3/uL; Monocyte% 12.9 % (0-10); NRBC Flagged by Analyzer 0 % (0-5); Neutrophil # 4.12 X10^3/uL (2.7-7.7); Neutrophil % 59.8 % (47-70); Platelet Count 233 K/mm3 (150-450); RBC Distribution Width CV 12.6 % (11.6-14.6); RBC Distribution Width SD 39.5 fl (35.1-43.9); Red Blood Count 5.21 M/mm3 (4.6-6.2); White Blood Count 6.9 K/mm3 (4.4-11.0)
[2019-10-04 00:18] LABS: D-Dimer Quantitative (DVT/PE) <= 0.27 FEU/ug/m (0.27-0.49)
[2019-10-04 00:23] LABS: AST(SGOT) 18 U/L (15-37); Alanine Aminotransfer ALT/SGPT 45 U/L (16-61); Alkaline Phosphatase 82 U/L (45-117); Anion Gap 6 (5-15); BUN 16 mg/dL (7-18); BUN/Creat Ratio 15.8 RATIO (10-20); Bilirubin, Direct 0.11 mg/dL (0.00-0.30); Calcium,Total 8.6 mg/dL (8.5-10.1); Chloride 107 mmol/L (98-107); Creatinine, Serum 1.01 mg/dL (0.70-1.30); EST Glomerular Filtration Rate 95 mL/min (>60); Est Glom Filt Rate - Afr Amer 115 mL/min (>60); Estimated Creatinine Clearance 108.17 ml/min; Globulin 3.9 g/dL (2.2-4.2); Glucose 120 mg/dL (74-106); Lipase 96 U/L (73-393); Potassium 3.5 mmol/L (3.5-5.1); Protein, Total 7.9 g/dL (6.4-8.2); Sodium Level 139 mmol/L (136-145)
[2019-10-04] MEDS: predniSONE 20 MG Tablet 60 MG PO (00:55)
[2019-10-04 00:58] VITALS: BP 145/82; PULSE 99; RESP 16; O2SAT 97
== END 2019-10-04 00:50 | disposition home or self-care (01) ==
PROVIDERS: Emergency Provider Emergency Medicine; PCP Family Medicine
DX: R09.1 Pleurisy (principal); F17.200 Nicotine dependence, unspecified, uncomplicated
CPT/HCPCS: 71046; 80048; 80076; 83690; 84484; 85025; 85379; 93005; 96361; 96374; 99285; J7030

== ENCOUNTER 2019-12-01 22:38 | Emergency (ER) | payer MEDICAID, SELFPAY ==
[2019-12-01 22:38] VITALS: BP 141/100; PULSE 85; RESP 17; TEMP 36.3; O2SAT 99; BMI 34.3
--- NOTE | 2019-12-01 23:02 | EKG12_ITS ---
Test Reason : CP Blood Pressure : / mmHG Vent. Rate : 080 BPM Atrial Rate : 080 BPM P-R Int : 130 ms QRS Dur : 088 ms QT Int : 360 ms P-R-T Axes : 056 054 035 degrees QTc Int : 415 ms Normal sinus rhythm Normal ECG Confirmed by MADELYN GUTIERREZ, DOT ([id number]), primer expeditor and drier MELODY RUANO ([id number]) on 12/06/2019 10:08:09 AM Referred By: Confirmed By:DOT JOSHI MD
--- NOTE | 2019-12-01 23:02 | ED.DEP ---
ED Disposition - Plan for ED Patient: Instructions: ED Chest Pain Atypical Unkn Cause Referrals: Rajat Marshall MD [Primary Care Provider] -
[2019-12-01 23:03] VITALS: BP 138/89; PULSE 80; RESP 18; O2SAT 99
--- NOTE | 2019-12-01 23:04 | ED.DCSUM_ITS ---
- ER Visit Summary Date of Service: 12/01/19 Chief Complaint: Chest pain History of Present Illness: The patient is a 24 M presenting with chest pain and left arm pain. He states this started 45 minutes prior to arrival. He states he started having left arm pain and then the pain went into his left chest. He states his pain has improved. He had palpitations associated with this. Denies dyspnea. Denies recent fever or cough. He has also comes of abdominal pain which has been going on for several months. He states he has an upcoming appointment for these symptoms. He is a smoker. Denies other CAD risk factors. Denies PE/DVT risk factors. Physical Examination: Vitals are stable. Patient is afebrile. Alert no acute distress. HEENT exam is unremarkable. Neck is supple. Lungs are clear and equal bilaterally. Heart is regular rate and rhythm. Abdomen is soft nontender nondistended. No rebound or guarding Extremities are unremarkable. Skin is warm and dry. No focal neurologic deficit. Remainder of exam is unremarkable. Emergency Department Course and Treatment: EKG is sinus rhythm rate of 80 with no acute ischemic changes. Patient declines further testing. He states he has had multiple tests for these symptoms in the past and does not want blood work or x-ray. He will sign out AGAINST MEDICAL ADVICE. He is advised to follow-up with his primary care physician. Advised return to ED for worsening complaints. Disposition: Left AGAINST MEDICAL ADVICE Impression: Chest pain This note was generated with [employer] dictation software. It may contain incorrect words, spelling, and punctuation that were not noted in review of the chart prior to signing ED Disposition - Plan for ED Patient: Disposition: Against Medical Advice Instructions: ED Chest Pain Atypical Unkn Cause Referrals: Rajat Marshall MD [Primary Care Provider] -
== END 2019-12-01 23:13 | disposition left against medical advice (07) ==
PROVIDERS: Emergency Provider Emergency Medicine; PCP Family Medicine
DX: R07.9 Chest pain, unspecified (principal); K21.9 Gastro-esophageal reflux disease without esophagitis; F17.200 Nicotine dependence, unspecified, uncomplicated; Z53.29 Procedure and treatment not carried out because of patient's decision for other reasons
CPT/HCPCS: 93005; 99283

== ENCOUNTER → 2020-02-08 17:50 | Outpatient (CLI) | payer MEDICAID, SELFPAY ==
[2020-01-29 14:16] VITALS: BMI 36.3
== END ==
PROVIDERS: PCP Family Medicine; Referring Provider Internal Medicine; Visit Provider Internal Medicine
DX: R05 Cough (principal); J02.9 Acute pharyngitis, unspecified
CPT/HCPCS: 87635; C9803; U0003

== ENCOUNTER 2020-02-17 01:54 | Emergency (ER) | payer MEDICAID, SELFPAY ==
[2020-01-29 14:16] VITALS: BMI 36.3
[2020-02-17 01:55] VITALS: BP 159/104; PULSE 88; RESP 16; TEMP 36.6; O2SAT 98; BMI 36.4
--- NOTE | 2020-02-17 02:25 | EKG12_ITS ---
Test Reason : DIZZINESS Blood Pressure : / mmHG Vent. Rate : 081 BPM Atrial Rate : 081 BPM P-R Int : 132 ms QRS Dur : 084 ms QT Int : 374 ms P-R-T Axes : 025 048 046 degrees QTc Int : 434 ms Normal sinus rhythm with sinus arrhythmia Normal ECG Confirmed by ALEJANDRINA GUTIERREZ, TANIA ([id number]), editor book NAY NAIDU ([id number]) on 02/19/2020 9:40:09 AM Referred By: URIAH Confirmed By:TANIA TINOCO MD
--- NOTE | 2020-02-17 02:26 | ED.DCSUM_ITS ---
History of Present Illness Chief Complaint: Dizziness Narrative: 24-year-old male with no known medical problems presents with chief complaint of dizziness. He cannot distinguish between lightheadedness or vertiginous dizziness. He states he just barely had trouble walking into the ER. He states he was already tested for Covid and this was negative. He is not had a fever or chills but he states he does wake up with the sweats sometimes. He has some mild right rib pain but no cough, fever, shortness of breath. He has nausea without vomiting. He denies abdominal pain but does admit to some diarrhea at times. Other times he has solid stool. He states he has had intermittent headaches. He also states he is already had a head CT and multiple work-ups and no findings have been found. Patient also complains that he has trouble remembering things now. - Past Medical History (1) Dizziness Status: Chronic Past Medical History - Allergies and Home Meds Allergies/Adverse Reactions: Allergies No Known Allergies Allergy (Verified 02/16/20 15:41) Primary Care Physician: Suzi Flannery MD [Primary Care Provider] - Prior records reviewed: Yes Past Medical History: None Surgical History: noncontributory Smoking Status: Current every day smoker Alcohol: None Drugs: None Review of Systems General: Reports: Sweats. Denies: Chills, Fever, Malaise Eyes: Denies: Visual changes - bilaterally, Diplopia ENT: Denies: Rhinorrhea, Sore throat Cardiovascular: Denies: Chest pain, Palpitations Respiratory: Reports: - - Right lower rib pain. Denies: Dyspnea, Cough, Dyspnea on exertion Gastrointestinal: Reports: Nausea. Denies: Abdominal pain, Vomiting Genitourinary: Denies: Dysuria, Hematuria Musculoskeletal: Denies: Myalgias, Arthralgias Skin: Denies: Rash, Abscess Neurological: Reports: Headache. Denies: Parasthesia, Numbness Physical Exam Vital Signs/Narrative: Vital Signs Temp Pulse Resp BP Pulse Ox 02/17/20 01:55 97.8 F 88 16 159/104 H 98 Inital Vital Signs reviewed: Yes General: Well nourished, No Acute Distress Head: Normocephalic, Atraumatic Eyes: Perrl, EOMI. Negative for: Pale conjunctiva, Scleral icterus ENT: Moist mucous membranes, No rhinorrhea Cardiovascular: Regular rate, Regular rhythm, No murmurs Respiratory: No distress, CTA bilaterally, Chest tenderness - Right lateral ribs in the midaxillary line approximately ribs 7 and 8. No crepitance, bruising Back: Nontender Extremities: Nontender, No edema Skin: Normal color, No rash Neurological: Alert, Oriented x3, Cranial nerves II-XII grossly intact Psychological: Normal affect, Normal Mood Diagnostic/Tx/Re-eval Laboratory Data 02/17/20 02/17/20 02/17/20 02:32 02:32 02:32 WBC 8.1 RBC 5.30 Hgb 14.5 Hct 46.3 MCV 87.4 MCH 27.4 MCHC 31.3 L RDW Std Deviation 39.7 RDW Coeff of Tawana 12.6 Plt Count 244 MPV 10.0 Immature Gran % (Auto) 0.400 Neut % (Auto) 50.1 Lymph % (Auto) 34.4 [place] % (Auto) 12.7 H Eos % (Auto) 1.9 Baso % (Auto) 0.5 Absolute Neuts (auto) 4.1 Absolute Lymphs (auto) 2.78 Nucleated RBC % 0 Sodium 139 Potassium 3.5 Chloride 107 Carbon Dioxide 28.0 Anion Gap 4 L BUN 17 Creatinine 0.98 Estim Creat Clear Calc 107.73 Est GFR (MDRD) Af Amer 119 Est GFR (MDRD) Non-Af 99 BUN/Creatinine Ratio 17.3 Glucose 95 Calcium 9.2 Total Bilirubin 0.20 AST 13 L ALT 45 Alkaline Phosphatase 80 Troponin I < 0.015 Total Protein 7.7 Albumin 3.8 Globulin 3.9 Albumin/Globulin Ratio 1.0 Lipase 126 Urine Color Urine Clarity Urine pH Ur Specific [place] Urine Protein Urine Glucose (UA) Urine Ketones Urine Occult Blood Urine Nitrite Urine Bilirubin Urine Urobilinogen Ur Leukocyte Esterase Urine RBC Urine WBC Ur Squamous Epith Cells Urine Bacteria Urine Mucus Urine Opiates Screen Urine Methadone Screen Ur Barbiturates Screen Ur Phencyclidine Scrn Ur Amphetamines Screen U Methamphetamin-MDMA U Benzodiazepines Scrn Urine Cocaine Screen U Cannabinoids Screen Ur Drug Screen Comment Ethyl Alcohol < 3.0 02/17/20 02/17/20 03:17 03:17 WBC RBC Hgb Hct MCV MCH MCHC RDW Std Deviation RDW Coeff of Tawana Plt Count MPV Immature Gran % (Auto) Neut % (Auto) Lymph % (Auto) [place] % (Auto) Eos % (Auto) Baso % (Auto) Absolute Neuts (auto) Absolute Lymphs (auto) Nucleated RBC % Sodium Potassium Chloride Carbon Dioxide Anion Gap BUN Creatinine Estim Creat Clear Calc Est GFR (MDRD) Af Amer Est GFR (MDRD) Non-Af BUN/Creatinine Ratio Glucose Calcium Total Bilirubin AST ALT Alkaline Phosphatase Troponin I Total Protein Albumin Globulin Albumin/Globulin Ratio Lipase Urine Color Yellow Urine Clarity Clear Urine pH 6.0 Ur Specific [place] 1.025 Urine Protein Negative Urine Glucose (UA) Normal Urine Ketones 5 H Urine Occult Blood 10 H Urine Nitrite Negative Urine Bilirubin Negative Urine Urobilinogen Normal Ur Leukocyte Esterase Negative Urine RBC 0 SEEN Urine WBC 0-5 SEEN Ur Squamous Epith Cells 0 SEEN Urine Bacteria 0 SEEN Urine Mucus 0 SEEN Urine Opiates Screen NEGATIVE Urine Methadone Screen NEGATIVE Ur Barbiturates Screen NEGATIVE Ur Phencyclidine Scrn NEGATIVE Ur Amphetamines Screen NEGATIVE U Methamphetamin-MDMA NEGATIVE U Benzodiazepines Scrn NEGATIVE Urine Cocaine Screen NEGATIVE U Cannabinoids Screen NEGATIVE Ur Drug Screen Comment Ethyl Alcohol - Rhythm Strip Rhythm Strip: Sinus Rhythm Rate: 81 - EKG Initial EKG Interpretation: Sinus Rhythm, No Acute Injury Pattern - Medical Decision Making He 4-year-old male presenting with multiple symptoms. He states he has had these for months. He states he has had multiple work-ups including CTs of the brain, abdomen pelvis, lab work. He is seen multiple doctors. He is here today because he feels like he is fighting to stay awake. His physical exam is benign. His lab work-up was all normal. I did attempt to get a chest x-ray however he refused. He is not having any respiratory symptoms and his vital signs are stable and he is afebrile. He was already tested for Covid?19 as well. At this point I think the patient is stable for outpatient follow-up and this was discussed with him. If he has any new or worsening symptoms he can return to the ER at any point. He acknowledged understanding of this as well. Impression: 1. Weakness 2. Dizziness ED Disposition - Plan for ED Patient: Disposition: Home or Assisted Living Instructions: ED Dizziness [facility], ED Weakness [facility] Referrals: Suzi Flannery MD [Primary Care Provider] -
[2020-02-17 02:38] LABS: Absolute Lymphocyte Count 2.78 X10^3/uL (0.83-4.51); Absolute Neutrophil Count 4.1 X10^3/uL (2.0-7.7); Basophil# 0.04 X10^3/uL; Basophil% 0.5 % (0-1); Eosinophil# 0.15 X10^3/uL; Eosinophils% 1.9 % (0-5); Hematocrit 46.3 % (40-54); Hemoglobin 14.5 g/dL (13.0-16.5); Lymphocyte # 2.78 X10^3/ul (4.0); Lymphocyte % 34.4 % (19-41); Mean Corp Hgb Conc 31.3 g/dL (32-36); Mean Corpuscular Hgb 27.4 pg (27.0-32.0); Mean Corpuscular Volume 87.4 fL (80-94); Monocyte# 1.03 X10^3/uL; Monocyte% 12.7 % (0-10); NRBC Flagged by Analyzer 0 % (0-5); Neutrophil # 4.06 X10^3/uL (2.7-7.7); Neutrophil % 50.1 % (47-70); Platelet Count 244 K/mm3 (150-450); RBC Distribution Width CV 12.6 % (11.6-14.6); RBC Distribution Width SD 39.7 fl (35.1-43.9); White Blood Count 8.1 K/mm3 (4.4-11.0)
[2020-02-17 02:49] LABS: Alcohol, Blood (Medical)-Serum < 3.0 mg/dL
[2020-02-17 02:57] LABS: AST(SGOT) 13 U/L (15-37); Alanine Aminotransfer ALT/SGPT 45 U/L (16-61); Albumin, Serum 3.8 g/dL (3.2-5.0); Alkaline Phosphatase 80 U/L (45-117); Anion Gap 4 (5-15); BUN 17 mg/dL (7-18); BUN/Creat Ratio 17.3 RATIO (10-20); Calcium,Total 9.2 mg/dL (8.5-10.1); Chloride 107 mmol/L (98-107); Creatinine, Serum 0.98 mg/dL (0.70-1.30); EST Glomerular Filtration Rate 99 mL/min (>60); Est Glom Filt Rate - Afr Amer 119 mL/min (>60); Estimated Creatinine Clearance 107.73 ml/min; Globulin 3.9 g/dL (2.2-4.2); Glucose 95 mg/dL (74-106); Lipase 126 U/L (73-393); Potassium 3.5 mmol/L (3.5-5.1); Protein, Total 7.7 g/dL (6.4-8.2); Sodium Level 139 mmol/L (136-145)
[2020-02-17 03:24] LABS: Bacteria 0 SEEN /hpf (None Seen); Mucous, Urine 0 SEEN /hpf (<or=2+); Red Blood Cells-Urine 0 SEEN /hpf (0-5); Squamous Epithelial Cells - UA 0 SEEN /hpf (0-5)
[2020-02-17 03:29] LABS: Vista UDS pH Range 6
[2020-02-17] MEDS: proMETHazine 25 MG/ML Syringe 12.5 MG IV (03:35)
[2020-02-17] MEDS: 0.9% Normal Saline 1,000 ML 999 ML IV (03:35)
[2020-02-17 03:40] LABS: Amphetamine Urine VISTA NEGATIVE (<1000 ng/mL); Barbiturate Urine VISTA NEGATIVE (< 200 ng/mL); Benzodiazepine Urine VISTA NEGATIVE (< 200 ng/mL); Cocaine Urine VISTA NEGATIVE (< 300 ng/mL); Ecstacy Urine VISTA NEGATIVE (< 500 ng/mL); Methadone Urine VISTA NEGATIVE (< 300 ng/mL); PCP Urine VISTA NEGATIVE (< 25 ng/mL); THC Urine VISTA NEGATIVE (< 50 ng/mL)
[2020-02-17 04:12] LABS: Color, Urine Yellow (Yellow); Glucose, Dipstick Normal (Normal); Ketone-Dipstick 5 mg/dl (Negative); Leukocyte Esterase-Dipstick Negative /ul (Negative); Nitrite-Dipstick Negative (Negative); Occult Blood-Urine 10 /ul (Negative); Protein-Dipstick Negative (Negative); Specific Gravity, Urine 1.025 (1.002-1.030); Urine Bilirubin Dipstick Negative (Negative); Urine Clarity Clear (Clear); Urine Urobilinogen Normal (Normal)
[2020-02-17 04:18] VITALS: RESP 16
[2020-02-17 04:40] LABS: White Blood Cells 0-5 SEEN /hpf (0-5)
[2020-02-17 05:01] VITALS: RESP 16
== END 2020-02-17 05:02 | disposition home or self-care (01) ==
PROVIDERS: Emergency Provider Student in an Organized Health Care Education/Training Program; PCP Internal Medicine
DX: R42 Dizziness and giddiness (principal); R53.1 Weakness; F17.200 Nicotine dependence, unspecified, uncomplicated
CPT/HCPCS: 80053; 80307; 80320; 81001; 83690; 84484; 85025; 93005; 96361; 96374; 99283; G0480

== ENCOUNTER 2020-02-21 07:51 | Day surgery (SDC) | payer MEDICAID, SELFPAY ==
[2020-01-16 10:22] VITALS: BMI 36.0
--- NOTE | 2020-02-07 07:00 | HP_ITS ---
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 Is patient in pain?: Yes Allergies No Known Allergies Allergy (Verified 01/16/20 10:23) Medications Fluticasone 0.05% [Flonase Nasal [place]] 1 spray NASAL DAILY PRN 12/01/19 [History Confirmed 01/16/20] ibuprofen 200 mg tablet 200 mg PO Q6H PRN 12/27/19 [History Confirmed 01/16/20] omeprazole 40 mg capsule,delayed release 40 mg PO DAILY cap 12/27/19 [History Confirmed 01/16/20] pseudoephedrine HCl 30 mg tablet 30 mg PO Q4H PRN tab 12/27/19 [History Confirmed 01/16/20] tiotropium bromide 2.5 mcg/actuation mist for inhalation 2 puff INHALATION DAILY g 12/27/19 [History Confirmed 01/16/20] PFSH Medical History Abdominal pain (Acute) History of change in bowel patterns (Acute) ADHD (Chronic) Migraine (Chronic) Surgical History History of circumcision (Acute) Family History Mother Asthma Anxiety Father Anxiety Social History (Updated 01/17/20 @ 14:[address] Deshaun Stock MD) alcohol intake: never substance use type: does not use HPI HPI Surgical H&P: Yes HPI: GARO DALE, is a 24 M who presents to the office today for Evaluation for endoscopy. Patient was seen by Magdalena Escobar at the [facility] back on 11/06/2019 was recommended at that time the patient undergo an EgD and colonoscopy. Patient did not do that at that time because he did not want to be put to sleep. HIDA scan was obtained with ejection fraction which was reportedly normal. He was started on dicyclomine but was not taking this secondary to it giving him constipation. She had a CAT scan of the abdomen and pelvis on 12/15/2019 which showed an increased number of normal size lymph nodes in the mesentery thought to be reactive in etiology. No CT evidence of an acute abnormality was identified at that time. Patient's been reporting increasing amounts of mucousy stool loose in nature. Still experiencing upper abdominal discomfort seems to be worse in the morning. Patient states that he feels like someone is squeezing him real tight in the upper abdomen Patient has been seen by ear nose and throat told that he has reflux tonsillitis. States that he has had proton pump inhibitors in the past but it did absolutely nothing for his discomfort. ROS General General: Yes weight change and fatigue; no appetite, colon cancer, breast cancer or weakness HEENT HEENT: Yes swollen glands Endo Endocrine: No thyroid disease, diabetes mellitus, thyroid cancer, Hair loss, heat intolerance or cold intolerance Skin Skin: No rash or changing moles Breast Breast: No left breast lump, right breast lump, nipple discharge, breast pain, abnormal mammogram, abnormal US or breast enlargement Musc Musculoskeletal: Yes back problems and arthritis; no rheumatoid arthritis, gout or joint pain Cardio Cardiovascular: No murmur, pacemaker, heart disease, atrial fibrillation, high blood pressure, heart attack, heart stent, palpitations, shortness of breat with exertion or chest pain Psych Psychiatric: No depression, anxiety or hearing voices Resp Respiratory: Yes shortness of breath, No sleep apnea, Yes cough, No COPD, No asthma, No emphysema, No wheezing Gastro Gastrointestinal: Yes abdominal pain, Yes nausea or vomiting, Yes diarrhea, No constipation, No blood in stool, No acid reflux, No hemorrhoids, No ulcers, No gallbladder problem, No black,tarry stools [place] Hematologic: No blood thinners, No blood disorders, No bleeding, No anemia, No blood clots Neuro Neurologic: No system reviewed and no additional complaints, except as docu, No as per HPI, No abnormal walking, No abnormal hearing, No abnormal movements, No abnormal speech, No behavioral changes, No burning sensations, No confusion, No seizure-like activity, No unsteadiness, No dizziness, No localized weakness, No frequent falls, No headache(s), No lack of coordination, No loss of vision, No memory loss, Yes numbness, No other visual disturbances, No radiating pain, No restless legs, No sensory deficit, No fainting, Yes tingling, No tremor(s), No weakness, No other Exam Const General: no acute distress, well developed, well hydrated Orientation: oriented to person, oriented to place, oriented to time [facility] Head: normocephalic, atraumatic Ears: external ears normal Mouth: moist mucous membranes Eyes Sclera: sclerae normal Pupils: normal by confrontation Neck Neck: no lymphadenopathy noted Neck mass: No Thyroid: thyroid normal, symmetrical Chest Chest palpation & inspection: normal inspection of the chest Breast Palpation: No nipple discharge Resp Effort & Inspection: normal respiratory effort Auscultation: clear to auscultation bilaterally Percussion: percussion normal Cardio Rate: regular rate Rhythm: regular rhythm Heart Sounds: no murmurs GI Palpation: soft, no hepatosplenomegaly, no masses, nontender Rectal Exam: other Other: Rectal exam deferred. Extrem General: normal to inspection, no clubbing, cyanosis or edema Assessment & Plan Problems 1. Diarrhea, unspecified type R19.7 2. Epigastric abdominal pain R10.13 3. Gastroesophageal reflux disease, unspecified whether esophagitis present K21.9 Plan I have discussed the above with the patient. I have offered the patient colonoscopy As well as an EGD for evaluation. I have explained the risks/benefits of the procedure and described the procedure. I have discussed the risks with the patient, including but not limited to: infection, bleeding, perforation of the GI tract requiring emergency surgery, inability to complete the procedure, injury to any internal organs, complications of anesthesia, etc. - the patient understands and agrees to proceed. I have answered all the patient's questions to the patient's satisfaction and the patient has no further questions. The patient has been given instructions for the colon cleansing preparation. We will be doing random colon biopsies As well as a biopsy of his duodenum Coding Level of Care Code Off vis,new,level 3 Diagnoses Diarrhea, unspecified type R19.7 ??Diarrhea type: unspecified type Epigastric abdominal pain R10.13 Gastroesophageal reflux disease, unspecified whether esophagitis present K21.9 ??Esophagitis presence: esophagitis presence not specified COVID (Procedure Consent) Procedure Criteria Procedure Criteria: Yes Elective The surgeon/proceduralist and patient have discussed in detail the risk of exposure to and/or potential harm posed by the COVID-19 virus with having a surgery/procedure at this time versus the risk of? delaying the surgery/procedure. It is not possible to know either the risk of delaying the surgery or procedure or chance of getting an infection with perfect accuracy, but a joint decision was made between the patient and the surgeon/proceduralist ?to proceed at this time with the scheduled surgery/procedure as indicated on the consent form. I have re-examined the patient. There are no clinical changes since date of exam.
--- NOTE | 2020-02-16 16:13 | NURSING ---
During PAT phone Call, pt informed that he needs COVID test to be able to have scheduled EGD/colonoscopy. Pt states that he had one. Results seen from 02/08/20 neg. Pt informed that the COVID test needs repeated as it is outside of the acceptable window of 10 days. Pt using loud voice on phone. PAT questions completed and pt informed that this RN would call Dr Stock's office and then call him back. Pt asks what time he should be here on 02/20 for procedure two sentences past him being informed that the Surgery Sec'y will call on 02/19 to tell him when to arrive. This RN spoke with [place]at in Dr Stock's office who explained that the first test was bc he was having symptoms and that pt was at that time instructed to f/u with PCP for COVID test and that he would need another test prior to procedure. This RN phoned pt back and informed him that test is still needed in order to have procedure. Pt using loud voice. Pt adamant that he would not have a second test. pt states he will phone Dr Stock. Minutes later pt's girlfriend phones this RN and states that pt will have the test done. appointment made.
[2020-02-21] VITALS (8 sets, daily range): BP systolic 94–125; BP diastolic 65–83; PULSE 83–97; RESP 16–18; TEMP 36.4–36.7; O2SAT 93–99; BMI 36.3
[2020-02-21] MEDS: Lactated Ringers 1,000 ML 100 ML IV (08:34)
--- NOTE | 2020-02-21 09:00 | IMM_PTH ---
PATIENT: GARO DALE LOC: EN U#:[id number] AGE/SX: 24/M ROOM: RE02/21/[address]: Dr. Deshaun Stock MD : [id number] BED: DIS: 02/21/2020 SPEC #: [id number] RECD: 02/21/20 13:30 STATUS: DENISE REBowen #: [id number] CHRISTINA: 02/21/20 09:[address]: Deshaun Stock DEPT: IMMUNOHISTOCHEMISTRY RECD BY: Rdaha Reyna ENTERED: 02/21/20 13:30 SP TYPE: IMMUNO OTHR DR: Dr. Suzi Flannery MD Tissues: B - Stomach, NOS Procedures: H Pylori (initial) PHYSICIAN & INSTITUTION [place] [id number] SPECIMEN INFORMATION: Tissue Source: B - Antrum biopsy Clinical Info: Diarrhea, epigastric abdominal pain, GERD, esophagitis Specimen Number: [id number] CPT code: 66641 METHODOLOGY: Deparaffinized sections of prefer/formalin-fixed tissue or PAP/DQ stained slides are incubated with monoclonal/polyclonal antibodies/oligonucleotide probes. Localization is made via biotin free immunoperoxidase method. Appropriate controls are performed and reacted as expected. Results on target cell population are indicated in the following table: RESULTS: ANTIBODY / CLONE RESULT Block B H Pylori (polyclonal) negative These tests were developed and their performance characteristics determined by [facility]. They may not have been cleared or approved by the U.S. Food and Drug Administration. The FDA has determined that such clearance or approval is not necessary. INTERPRETATION: B. Antrum, biopsy: Negative for Helicobacter pylori organisms. SJ:cris 02/23/20
--- NOTE | 2020-02-21 09:00 | EGD_PTH ---
PATIENT: GARO DALE LOC: EN U#:[id number] AGE/SX: 24/M ROOM: RE02/21/[address]: Dr. Deshaun Stock MD : 1995 BED: DIS: 02/21/2020 SPEC #: [id number] RECD: 02/21/20 12:13 STATUS: DENISE [place] #: [id number] CHRISTINA: 02/21/20 09:[address]: Deshaun Stock DEPT: SURGICAL PATHOLOGY RECD BY: Rachel Plummer ENTERED: 02/21/20 13:35 SP TYPE: EGD BIOPSY OTHR DR: Dr. Suzi Flannery MD Tissues: A - Duodenum, NOS B - Gastric mucous membrane C - COLON BIOPSY Procedures: Surgery Specimen Level IV HEADER OPERATION: Colonoscopy, EGD ([facility] [place] PRE-OP DIAGNOSIS: Diarrhea, epigastric abdominal pain, GERD, esophagitis TISSUE SUBMITTED: A - Duodenum biopsy, B - Antrum biopsy for histo and H. pylori, C - Random colonic biopsy MICROSCOPIC DIAGNOSIS A. Duodenum, biopsy: A fragment of duodenal mucosa, no pathologic diagnosis. B. Antrum, biopsy: Mild gastritis. See microscopic description and comment. C. Colon, random biopsy: Fragments of colonic mucosa, no pathologic diagnosis. SJ:rg 02/23/20 COMMENT B. The results of immunohistochemistry for Helicobacter pylori will be reported separately ([id number]). MICROSCOPIC DESCRIPTION Slides are reviewed. B. The specimen shows fragments of gastric mucosa with chronic inflammatory cell infiltrates in the lamina propria consisting of lymphocytes and plasma cells, consistent with mild chronic gastritis. GROSS DESCRIPTION A - Received in fixative is one container labeled with the patient's name and designated duodenum biopsy. The specimen consists of one irregular fragment of light long soft tissue that measures 1 x 0.2 x 0.1 cm. The specimen is totally submitted in one cassette. B - Received in fixative is one container labeled with the patient's name and designated antrum biopsy. The specimen consists of multiple irregular fragments of light long soft tissue that in aggregate measure 0.3 x 0.2 x 0.1 cm. The specimen is totally submitted in one cassette. C - Received in fixative is one container labeled with the patient's name and designated random colonic biopsy. The specimen consists of multiple irregular fragments of light long soft tissue that in aggregate measure 2 x 0.5 x 0.1 cm. The specimen is totally submitted in one cassette. / SJ:rg 02/21/20 TC:3 CPT: 73025 x3
--- NOTE | 2020-02-21 09:34 | OP.EGD_ITS ---
Patient Name: Neil Davison Procedure Date: 02/21/2020 8:59 AM Date of : 1995 Age: 24 Procedure: Upper GI endoscopy Indications: Epigastric abdominal pain, Suspected gastro-esophageal reflux disease Providers: Deshaun Stock MD Referring MD: Suzi Flannery Medicines: See the Anesthesia note for documentation of the administered medications Patient Profile: This is a 24 year old male. Refer to note in patient chart for documentation of history and physical. Complications: No immediate complications. Procedure: Pre-Anesthesia Assessment: - Prior to the procedure, a History and Physical was performed, and patient medications and allergies were reviewed. The patient's tolerance of previous anesthesia was also reviewed. The risks and benefits of the procedure and the sedation options and risks were discussed with the patient. All questions were answered, and informed consent was obtained. Prior Anticoagulants: The patient has taken no previous anticoagulant or antiplatelet agents. ASA Grade Assessment: II - A patient with mild systemic disease. After reviewing the risks and benefits, the patient was deemed in satisfactory condition to undergo the procedure. After obtaining informed consent, the endoscope was passed under direct vision. Throughout the procedure, the patient's blood pressure, pulse, and oxygen saturations were monitored continuously. The gastroscope was introduced through the mouth, and advanced to the second part of duodenum. The upper GI endoscopy was accomplished without difficulty. The patient tolerated the procedure well. Scope In: 9:11:11 AM Scope Out: 9:13:37 AM Total Procedure Duration Time 0 hours 2 minutes 26 seconds Findings: The Z-line was regular and was found 41 cm from the incisors. No biopsies or other specimens were collected for this exam. Localized mildly erythematous mucosa without bleeding was found in the prepyloric region of the stomach. Biopsies were taken with a cold forceps for Helicobacter pylori testing. The examined duodenum was normal. Biopsies for histology were taken with a cold forceps for evaluation of celiac disease. Impression: - Z-line regular, 41 cm from the incisors. No specimens collected. - Erythematous mucosa in the prepyloric region of the stomach. Biopsied. - Normal examined duodenum. Biopsied. Recommendation: - Await pathology results. - Repeat upper endoscopy (date not yet determined) for screening purposes. - Telephone my office for pathology results in 1 week. - Continue present medications. Procedure Code(s): --- Professional --- 63247, Esophagogastroduodenoscopy, flexible, transoral; with biopsy, single or multiple Diagnosis Code(s): --- Professional --- K31.89, Other diseases of stomach and duodenum R10.13, Epigastric pain CPT copyright 2017 [employer]. All rights reserved. The codes documented in this report are preliminary and upon boom stick worker review may be revised to meet current compliance requirements. MD Deshaun Braden MD 02/21/2020 9:34:31 AM This report has been signed electronically. Number of Addenda: 0 Note Initiated On: 02/21/2020 8:59 AM
--- NOTE | 2020-02-21 09:34 | OP.CCLET_ITS ---
02/21/2020 Suzi Flannery [facility] [address] [place] [address] Re : Upper GI endoscopy procedure for Neil Davison Dear Dr. Flannery This procedure was performed on Friday, February 21, 2020. My impressions and recommendations are as follows: Impressions : - Z-line regular, 41 cm from the incisors. No specimens collected. - Erythematous mucosa in the prepyloric region of the stomach. Biopsied. - Normal examined duodenum. Biopsied. Recommendations : - Await pathology results. - Repeat upper endoscopy (date not yet determined) for screening purposes. - Telephone my office for pathology results in 1 week. - Continue present medications. My findings are described in the full procedure note, which is enclosed. If I can be of further assistance, please feel free to contact me at Doctor phone number(s): , Fax: [phone], Work: . Sincerely, MD Deshaun Braden MD 02/21/2020 9:34:31 AM This report has been signed electronically.
--- NOTE | 2020-02-21 09:37 | OP.CCLET_ITS ---
02/21/2020 Suzi Flannery [facility] [address] [place] [address] Re : Colonoscopy procedure for Neil Davison Dear Dr. Flannery This procedure was performed on Friday, February 21, 2020. My impressions and recommendations are as follows: Impressions : - The entire examined colon is normal. Biopsied. - The examination was otherwise normal on direct and retroflexion views. Recommendations : - Discharge patient to home. - Resume previous diet. - Continue present medications. - Await pathology results. - Repeat colonoscopy is not recommended for screening purposes. - Return to primary care physician (date not yet determined). My findings are described in the full procedure note, which is enclosed. If I can be of further assistance, please feel free to contact me at Doctor phone number(s): , Fax: [phone], Work: . Sincerely, MD Deshaun Braden MD 02/21/2020 9:37:08 AM This report has been signed electronically.
--- NOTE | 2020-02-21 09:37 | OP.COLON_ITS ---
Patient Name: Neil Davison Procedure Date: 02/21/2020 9:14 AM Date of : 1995 Age: 24 Procedure: Colonoscopy Indications: Clinically significant diarrhea of unexplained origin Providers: Deshaun Stock MD Referring MD: Suzi Flannery Medicines: See the Anesthesia note for documentation of the administered medications Patient Profile: This is a 24 year old male. Refer to note in patient chart for documentation of history and physical. Last Colonoscopy: none. The patient's first colonoscopy is today. Complications: No immediate complications. Procedure: Pre-Anesthesia Assessment: - Prior to the procedure, a History and Physical was performed, and patient medications and allergies were reviewed. The patient's tolerance of previous anesthesia was also reviewed. The risks and benefits of the procedure and the sedation options and risks were discussed with the patient. All questions were answered, and informed consent was obtained. Prior Anticoagulants: The patient has taken no previous anticoagulant or antiplatelet agents. ASA Grade Assessment: II - A patient with mild systemic disease. After reviewing the risks and benefits, the patient was deemed in satisfactory condition to undergo the procedure. After I obtained informed consent, the scope was passed under direct vision. Throughout the procedure, the patient's blood pressure, pulse, and oxygen saturations were monitored continuously. The colonoscope was introduced through the anus and advanced to the cecum, identified by appendiceal orifice and ileocecal valve. The colonoscopy was performed without difficulty. The patient tolerated the procedure well. The quality of the bowel preparation was good. Scope In: 9:15:37 AM Scope Withdrawal Time 0 hours 8 minutes 5 seconds Scope Out: 9:28:46 AM Total Procedure Duration Time 0 hours 13 minutes 9 seconds Findings: The colon (entire examined portion) appeared normal. Biopsies for histology were taken with a cold forceps from the entire colon for evaluation of microscopic colitis. The exam was otherwise without abnormality on direct and retroflexion views. Impression: - The entire examined colon is normal. Biopsied. - The examination was otherwise normal on direct and retroflexion views. Recommendation: - Discharge patient to home. - Resume previous diet. - Continue present medications. - Await pathology results. - Repeat colonoscopy is not recommended for screening purposes. - Return to primary care physician (date not yet determined). Procedure Code(s): --- Professional --- 73311, Colonoscopy, flexible; with biopsy, single or multiple Diagnosis Code(s): --- Professional --- R19.7, Diarrhea, unspecified CPT copyright 2017 [employer]. All rights reserved. The codes documented in this report are preliminary and upon grinding wheel inspector review may be revised to meet current compliance requirements. MD Deshaun Braden MD 02/21/2020 9:37:08 AM This report has been signed electronically. Number of Addenda: 0 Note Initiated On: 02/21/2020 9:14 AM
== END 2020-02-21 10:49 | disposition home or self-care (01) ==
LOC: EN 07:52 → AC 07:52
PROVIDERS: PCP Internal Medicine; Referring Provider Internal Medicine; Visit Provider Surgery
PROC: 0DJD8ZZ Inspection of Lower Intestinal Tract, Via Natural or Artificial Opening Endoscopic (ICD-10-PCS; CPT 45378; principal; 2020-02-21 08:55)
DX: K29.70 Gastritis, unspecified, without bleeding (principal); K21.00 Gastro-esophageal reflux disease with esophagitis, without bleeding; K31.89 Other diseases of stomach and duodenum; F90.9 Attention-deficit hyperactivity disorder, unspecified type; E78.00 Pure hypercholesterolemia, unspecified; F41.9 Anxiety disorder, unspecified; F32.9 Major depressive disorder, single episode, unspecified; F17.210 Nicotine dependence, cigarettes, uncomplicated; Z79.899 Other long term (current) drug therapy; Z20.828 Contact with and (suspected) exposure to other viral communicable diseases
CPT/HCPCS: 43239; 45380; 87426; 88305; 88342; C9803; J7120; J1610; J2405

== ENCOUNTER → 2020-03-19 11:44 | Outpatient (CLI) | payer MEDICAID, SELFPAY ==
[2020-03-19 10:55] VITALS: BMI 37.7
[2020-03-19 15:30] LABS: Absolute Lymphocyte Count 1.92 X10^3/uL (0.83-4.51); Absolute Neutrophil Count 2.4 X10^3/uL (2.0-7.7); Basophil# 0.02 X10^3/uL; Basophil% 0.4 % (0-1); Eosinophil# 0.09 X10^3/uL; Eosinophils% 1.7 % (0-5); Hematocrit 47.3 % (40-54); Hemoglobin 14.8 g/dL (13.0-16.5); Lymphocyte # 1.92 X10^3/ul (4.0); Mean Corp Hgb Conc 31.3 g/dL (32-36); Mean Corpuscular Hgb 26.9 pg (27.0-32.0); Mean Corpuscular Volume 85.8 fL (80-94); Mean Platelet Vol. 10.6 fl (6.2-12.0); Monocyte# 0.86 X10^3/uL; Monocyte% 16.1 % (0-10); NRBC Flagged by Analyzer 0 % (0-5); Neutrophil # 2.44 X10^3/uL (2.7-7.7); Neutrophil % 45.6 % (47-70); Platelet Count 273 K/mm3 (150-450); RBC Distribution Width SD 40.6 fl (35.1-43.9); Red Blood Count 5.51 M/mm3 (4.6-6.2); White Blood Count 5.3 K/mm3 (4.4-11.0)
[2020-03-19 15:47] LABS: AST(SGOT) 23 U/L (15-37); Alanine Aminotransfer ALT/SGPT 54 U/L (16-61); Alkaline Phosphatase 89 U/L (45-117); Anion Gap 5 (5-15); BUN 14 mg/dL (7-18); BUN/Creat Ratio 14.7 RATIO (10-20); Calcium,Total 9.2 mg/dL (8.5-10.1); Chloride 105 mmol/L (98-107); Cholesterol 220 mg/dL (200); Creatinine, Serum 0.95 mg/dL (0.70-1.30); EST Glomerular Filtration Rate 102 mL/min (>60); Est Glom Filt Rate - Afr Amer 123 mL/min (>60); Free T3 3.8 pg/mL (2.18-3.98); Globulin 4.2 g/dL (2.2-4.2); Glucose 84 mg/dL (74-106); High Density Lipoprotein 40 mg/dL; Potassium 3.8 mmol/L (3.5-5.1); Protein, Total 8.2 g/dL (6.4-8.2); Sodium Level 138 mmol/L (136-145); T4 Free Direct 1.07 ng/dL (0.76-1.46); Thyroid Stim Hormone (TSH) 1.68 uIU/mL (0.358-3.74); Triglycerides 158 mg/dL; Very Low Density Lipoprotein 32 mg/dL (5-40)
== END ==
PROVIDERS: PCP Internal Medicine; Referring Provider Internal Medicine; Visit Provider Internal Medicine
DX: R42 Dizziness and giddiness (principal); M54.2 Cervicalgia; R68.84 Jaw pain; R07.9 Chest pain, unspecified; E66.9 Obesity, unspecified
CPT/HCPCS: 36415; 80053; 80061; 84439; 84443; 84481; 85025

== ENCOUNTER → 2020-04-09 | Outpatient (CLI) | payer MEDICAID, SELFPAY ==
[2020-03-19 10:55] VITALS: BMI 37.7
[2020-04-14 20:07] LABS: Cortisol, Urinary Free 26 ug/L (Undefined); Metanephrine, Ur 128 ug/L (Undefined); Metanephrines, 24Ur 92 ug/24 hr (58-276); Normetanephrines, 24Ur 141 ug/24 hr (110-553); Normetanephrines, Ur 195 ug/L (Undefined)
[2020-04-15 11:16] LABS: Cortisol, Free 24Ur 19 ug/24 hr (5-64)
== END | disposition home or self-care (01) ==
LOC: LABSPEC 13:05
PROVIDERS: PCP Internal Medicine; Referring Provider Internal Medicine; Visit Provider Internal Medicine
DX: R42 Dizziness and giddiness (principal); R07.9 Chest pain, unspecified; R68.84 Jaw pain; M54.2 Cervicalgia; E66.9 Obesity, unspecified
CPT/HCPCS: 81050; 82530; 83835

== ENCOUNTER 2020-04-20 20:06 | Emergency (ER) | payer MEDICAID, SELFPAY ==
[2020-03-19 10:55] VITALS: BMI 37.7
[2020-04-20 20:08] VITALS: BP 139/69; PULSE 110; RESP 15; TEMP 37.6; O2SAT 97; BMI 36.1
--- NOTE | 2020-04-20 20:33 | ED.VISSUMM ---
- ER Visit Summary Date of Service: 04/20/20 Chief Complaint: Abdominal pain History of Present Illness: The patient is a [address] Alegre. He reports his right upper quadrant abdominal pain began 3 days ago. Is a continuous squeezing pain is 1010 at worst 9-10 currently. Is worsened by any food. He denies any specific spicy or fatty food intolerance. Is relieved by nothing. He has been nauseated and vomited 3 times yesterday and twice today. No blood in his emesis. No coffee-ground emesis. He reports he has had frequent small amounts of diarrhea. He estimates 10 episodes of this. No blood in his stools or black tarry stools. No dysuria or frequency. Patient denies sick contacts. Has not been camping out of the country. No possible bad food exposure. Does not drink well water. No recent antibiotic use. Patient reports that he has had the same symptoms intermittently for months and has had an extensive work-up. Has had CT, ultrasound, blood work, colonoscopy, and endoscopy. He was scheduled for a right upper quadrant ultrasound and a HIDA scan, but did not go. Patient also reports has had low back pain over the same timeframe. 7 out of 10 currently 9 out of 10 at worst. This is been present for 3 days. He denies any trauma. No fall, MVA, or change in activity. He denies any numbness or weakness. No radiation down his leg. No problems with his bowels or his bladder. Nothing makes this better or worse. Physical Examination: Vitals: Stable. Afebrile. General: Well-nourished and well-developed. Head: Normocephalic atraumatic. Neck: Supple, no lymphadenopathy. No JVD. Nontender. Cardiovascular: Regular rate and rhythm. No murmurs. Respiratory: No respiratory distress. Clear to auscultation bilaterally. Abdominal: Soft, moderate tenderness palpation in the right upper quadrant, nondistended, normal bowel sounds. No guarding, rebound, or peritoneal signs. Back: Mild tenderness palpation over the lumbar spine paraspinous posterior lumbar region bilaterally. He has a negative straight leg raise. 5 out of 5 dorsiflexion, plantarflexion, extensor hallucis longus bilaterally. Normal sensation light touch throughout. Extremities: Nontender, no edema. Skin: Normal color, no rash. Neurologic: Alert and oriented ?3. Cranial nerves II through XII are intact. Normal strength and sensation. Psych: Normal affect. Test Results: CBC shows monocytes of 12. Chem-7 is normal. LFTs show total protein of 8.5 globin of 4.3. UA is normal. Lipase is normal. Clinical Impression(s) from Imaging Studies Abdomen/Pelvis CT 04/20/20 21:12 IMPRESSION: No acute intra-abdominal process. Electronically Signed: Rosa Herrera MD at 21:26 EST Tel , Service support , Emergency Department Course and Treatment: Patient had an IV placed. Is given a liter normal saline. He was given Toradol and Zofran IV. He is resting more comfortably. Patient does have an ED care plan. He reports that he has had abdominal pain for quite some time and multiple work-ups for this. I do not feel that opiate-based medications are indicated. Treatment Plan: Patient reports that he was previously on omeprazole and he is run out. He will be discharged prescription for Prilosec and instructed to follow-up his primary care physician in 1 week if not improving. He is also instructed to follow-up with Dr. Stock as he has previously seen him for these symptoms and was scheduled to have a right upper quadrant ultrasound and HIDA scan which he did not go to. Return to the emergency department for any worsening symptoms. Disposition: To home in improved and stable condition. Impression: 1. Abdominal pain, uncertain cause. 2. Low back pain. 3. ED care plan. This note was generated with [employer] dictation software. It may contain incorrect words, spelling, and punctuation that were not noted in review of the chart prior to signing ED Disposition - Plan for ED Patient: Disposition: Home or Assisted Living Instructions: ED Unknown Causes of Abdominal ... Prescriptions: Omeprazole [Prilosec] 20 mg PO DAILY #30 cap Prescription Printed Referrals: Deshaun Stock MD [STAFF PHYSICIAN] - Suzi Flannery MD [Primary Care Provider] - 3-5 Days if not improving
[2020-04-20 20:44] LABS: White Blood Cells 0 SEEN /hpf (0-5)
[2020-04-20 20:45] LABS: Absolute Lymphocyte Count 2.03 X10^3/uL (0.83-4.51); Basophil# 0.02 X10^3/uL; Basophil% 0.2 % (0-1); Eosinophil# 0.06 X10^3/uL; Eosinophils% 0.6 % (0-5); Hemoglobin 14.8 g/dL (13.0-16.5); Lymphocyte # 2.03 X10^3/ul (4.0); Lymphocyte % 21.9 % (19-41); Mean Corp Hgb Conc 32.2 g/dL (32-36); Mean Corpuscular Hgb 27.5 pg (27.0-32.0); Mean Corpuscular Volume 85.5 fL (80-94); Mean Platelet Vol. 10.1 fl (6.2-12.0); Monocyte# 1.08 X10^3/uL; Monocyte% 11.7 % (0-10); NRBC Flagged by Analyzer 0 % (0-5); Neutrophil # 6.04 X10^3/uL (2.7-7.7); Neutrophil % 65.3 % (47-70); Platelet Count 265 K/mm3 (150-450); RBC Distribution Width CV 12.7 % (11.6-14.6); RBC Distribution Width SD 39.3 fl (35.1-43.9); Red Blood Count 5.38 M/mm3 (4.6-6.2); White Blood Count 9.3 K/mm3 (4.4-11.0)
[2020-04-20 20:52] LABS: Color, Urine Yellow (Yellow); Glucose, Dipstick Normal (Normal); Ketone-Dipstick Negative (Negative); Leukocyte Esterase-Dipstick Negative /ul (Negative); Nitrite-Dipstick Negative (Negative); Occult Blood-Urine 50 /ul (Negative); Protein-Dipstick 30 mg/dl (Negative); Specific Gravity, Urine 1.025 (1.002-1.030); Urine Bilirubin Dipstick Negative (Negative); Urine Clarity Sl. Cloudy (Clear); Urine Urobilinogen Normal (Normal)
[2020-04-20] MEDS: Mag Hydrox/Al Hydrox/Simeth 30 ML UDC PO (20:58)
[2020-04-20 20:59] LABS: Bacteria RARE /hpf (None Seen); Mucous, Urine RARE /hpf (<or=2+); Red Blood Cells-Urine 0-5 SEEN /hpf (0-5); Squamous Epithelial Cells - UA 0-5 SEEN /hpf (0-5)
[2020-04-20 21:02] LABS: AST(SGOT) 13 U/L (15-37); Alanine Aminotransfer ALT/SGPT 34 U/L (16-61); Albumin, Serum 4.2 g/dL (3.2-5.0); Alkaline Phosphatase 99 U/L (45-117); Anion Gap 7 (5-15); BUN 14 mg/dL (7-18); BUN/Creat Ratio 12.4 RATIO (10-20); Calcium,Total 9.2 mg/dL (8.5-10.1); Chloride 107 mmol/L (98-107); Creatinine, Serum 1.13 mg/dL (0.70-1.30); EST Glomerular Filtration Rate 83 mL/min (>60); Est Glom Filt Rate - Afr Amer 101 mL/min (>60); Estimated Creatinine Clearance 96.68 ml/min; Globulin 4.3 g/dL (2.2-4.2); Glucose 89 mg/dL (74-106); Lipase 88 U/L (73-393); Potassium 3.5 mmol/L (3.5-5.1); Protein, Total 8.5 g/dL (6.4-8.2); Sodium Level 141 mmol/L (136-145)
[2020-04-20] MEDS: 0.9% Normal Saline 1,000 ML 1000 ML IV (21:03)
--- NOTE | 2020-04-20 21:12 | CT_ITS ---
STUDY: CT ABDOMEN AND PELVIS WITHOUT CONTRAST REASON FOR EXAM: Male, 24 years old. RUQ PAIN X FEW DAYS RADIATION DOSAGE (If Supplied By Facility): CTDIvol = ( 13.65 ) mGy, DLP = ( 791.38 ) mGycm TECHNIQUE: Transaxial images were obtained from the dome of the diaphragm to the symphysis pubis without oral contrast, and without intravenous contrast. Sagittal and coronal images were reconstructed. Individualized dose optimization techniques were used for this CT. COMPARISON: 06/11/2018 FINDINGS: The visualized lung bases are unremarkable. The visualized portions of the heart are within normal limits. The lack of intravenous contrast limits evaluation of solid visceral organs. Normal liver. Normal gallbladder and extrahepatic biliary system. Normal spleen. Normal pancreas. Normal bilateral adrenal glands. Normal right kidney. Normal left kidney. Normal visualized stomach. Normal small intestine. Normal colon. The appendix is within normal limits. There are mildly prominent lymph nodes with the right lower quadrant which have not significantly changed since the prior examination. Normal abdominal aorta. Normal inferior vena cava. Normal retroperitoneum. Normal urinary bladder. There is a small umbilical hernia containing fat. There is a stable superior endplate deformity of L3 which may be secondary to a Schmorl''s node. CT/Abdomen/Pelvis without Cont IMPRESSION: No acute intra-abdominal process. Electronically Signed: Rosa Herrera MD at 21:26 EST Tel , Service support ,
[2020-04-20] MEDS: Pantoprazole Sodium 40 MG Tablet PO (22:22)
== END 2020-04-20 22:25 | disposition home or self-care (01) ==
LOC: ED 20:41
PROVIDERS: Emergency Provider Emergency Medicine; PCP Internal Medicine
DX: R10.11 Right upper quadrant pain (principal); M54.5 Low back pain; Z72.0 Tobacco use
CPT/HCPCS: 74176; 80053; 81001; 83690; 85025; 96360; 99284; J7030; A4216; J2405

== ENCOUNTER 2020-04-27 01:05 | Emergency (ER) | payer MEDICAID, SELFPAY ==
[2020-04-27 01:05] VITALS: BP 135/88; PULSE 94; RESP 18; TEMP 36.4; O2SAT 97; BMI 36.2
--- NOTE | 2020-04-27 01:13 | ED.DCSUM_ITS ---
History of Present Illness Chief Complaint: Abd Pain Informant: Patient Onset: Days Context: Gradual Onset Timing: Continuous Current Severity: Moderate Maximum Severity: Moderate Narrative: Patient is a 24-year-old male with history of anxiety who presents to the emergency department with abdominal pain. Patient states I been battling this for months. He states that he is seen surgery. He is actually scheduled for an outpatient HIDA scan. He was seen here about 6 days ago. At that point, he had an unremarkable work-up. He had a CT done which showed no acute intra-abdominal process. The patient was treated with Prilosec. He states he followed up with his primary care but is still been having pain. He states that he has had change in bowel habits. He denies weight loss or fever. He denies chills or sweats. He states he gets these waves of pain which are cramping in nature. He has no history of inflammatory bowel disease. Prior similar symptoms: Yes Recent Illness/Hospitalization: No Past Medical History - Allergies and Home Meds Allergies/Adverse Reactions: Allergies No Known Allergies Allergy (Verified 04/20/20 20:07) Primary Care Physician: Suzi Flannery MD [Primary Care Provider] - Prior records reviewed: Yes Past Medical History: None Surgical History: noncontributory Smoking Status: Current every day smoker Review of Systems General: Denies: Chills, Fever, Sweats Eyes: Denies: Visual changes - bilaterally, Diplopia ENT: Denies: Rhinorrhea, Sore throat Cardiovascular: Denies: Chest pain, Palpitations Respiratory: Denies: Dyspnea, Cough, Dyspnea on exertion Gastrointestinal: Reports: Abdominal pain. Denies: Nausea, Vomiting, Diarrhea, Melena, Hematochezia Genitourinary: Denies: Dysuria, Hematuria, Frequency Musculoskeletal: Denies: Back pain, Extremity Pain Skin: Denies: Rash, Wounds Neurological: Denies: Headache, Weakness, Numbness Physical Exam Vital Signs/Narrative: Vital Signs Temp Pulse Resp BP Pulse Ox 04/27/20 01:05 97.6 F L 94 18 135/88 H 97 Inital Vital Signs reviewed: Yes General: Well nourished, Well developed, No Acute Distress Head: Normocephalic, Atraumatic Eyes: Perrl, EOMI ENT: Moist mucous membranes, No rhinorrhea Neck: Supple, Nontender Cardiovascular: Regular rate, Regular rhythm, No murmurs Respiratory: No distress, CTA bilaterally, Chest nontender Abdomen: Soft, Nontender, Nondistended, Normal bowel sounds Back: Nontender, Normal Inspection Extremities: Nontender, No edema Skin: Normal color, No rash Neurological: Alert, Oriented x3, Cranial nerves II-XII grossly intact, Normal Strength, Normal Sensation Psychological: Normal affect, Normal Mood Diagnostic/Tx/Re-eval - Medical Decision Making The patient has been dealing with this pain for months. He has had a HIDA scan in November which was unremarkable. He had a recent negative CT 6 days ago. The patient has an established care plan which I informed him about. I did substance abuse counselor him that I would be more than happy to repeat some lab work to see if things are changed and he would require any imaging. The patient was upset with this. He decided he did not want to stay for any evaluation. He states that he will go to a different hospital. I counseled him that that is his choice. Obviously there is concern for drug-seeking behavior because the patient got more upset when he found out he would not be getting opiates. The patient will leave without treatment. Impression 1. Left without treatment 2. Right upper quadrant abdominal pain ED Disposition - Plan for ED Patient: Referrals: Suzi Flannery MD [Primary Care Provider] -
--- NOTE | 2020-04-27 01:32 | ED.RN ---
ON PRESENTATION TO ED, PT REPORTED HE WANTED TO HAVE AN US OF THE GALLBLADDER. THIS WAS NOT ORDERED. PT DID NOT WANT LABS DONE AGAIN HE WAS RECENTLY HERE AND HAD HAD LABS & CT. DR HUNTER MADE AWARE. PT LEFT AT THIS TIME
== END 2020-04-27 01:31 | disposition left against medical advice (07) ==
LOC: ED 01:21
PROVIDERS: Emergency Provider Emergency Medicine; PCP Internal Medicine
DX: Z53.29 Procedure and treatment not carried out because of patient's decision for other reasons (principal); R10.11 Right upper quadrant pain; F17.200 Nicotine dependence, unspecified, uncomplicated
CPT/HCPCS: 99281; 99282

== ENCOUNTER → 2020-05-01 09:23 | Outpatient (CLI) | payer MEDICAID, SELFPAY ==
[2020-02-21 08:16] VITALS: BMI 36.3
[2020-04-29 10:46] VITALS: BMI 37.0
--- NOTE | 2020-05-01 09:25 | RAD_ITS ---
PROCEDURE: SMALL BOWEL SERIES DATE OF EXAMINATION: 05/01/2020. INDICATION: Male, 24 years old. PHYSICIAN: Jose Juan Cox M.D. FLUOROSCOPY TIME (if supplied): (0:01) minutes/seconds TECHNIQUE: Radiographic and fluoroscopic images were taken of the small intestine following the ingestion of barium. COMPARISON: None. FINDINGS: A preliminary supine KUB was obtained. There is an unremarkable bowel gas pattern. Fecal material is present throughout the colon. The osseous structures are normal. The patient orally ingested approximately 12 ounces of thin barium Normal visualized fundus, body, and antrum of the stomach. Normal duodenal bulb, C-loop, and proximal jejunum. The patient did not return for follow-up imaging. RAD/Small Bowel Series Only IMPRESSION: Incomplete small bowel follow-through. Patient never returned for termination of the examination. Electronically Signed: Jose Juan Cox MD at 14:44 EST , Service support ,
== END ==
PROVIDERS: PCP Internal Medicine; Referring Provider Nurse Practitioner Adult Health; Visit Provider Nurse Practitioner Adult Health
DX: R10.33 Periumbilical pain (principal)
CPT/HCPCS: 74250

== ENCOUNTER → 2020-05-07 10:13 | Outpatient (CLI) | payer MEDICAID, SELFPAY ==
[2020-02-21 08:16] VITALS: BMI 36.3
[2020-04-29 10:46] VITALS: BMI 37.0
--- NOTE | 2020-05-07 10:16 | NM_ITS ---
CLINICAL: 24-year-old male with reported history of episodic abdominal pain and nausea. RADIONUCLIDE HEPATOBILIARY SCINTIGRAPHY COMPARISON: CT of the abdomen-pelvis report 04/20/2020 FINDINGS: Following the intravenous administration of 5.2 mCi of 99m Tc Mebrofenin, hepatobiliary images reveal: 1. Relatively prompt and homogeneous radiopharmaceutical concentration is noted by a normal sized liver. No parenchymal defects are identified. 2. Gallbladder activity is identified at 10 minutes post radiopharmaceutical administration. 3. Small intestinal tract is observed at 15 minutes following tracer injection. 4. Washout of the radiopharmaceutical by the hepatic parenchyma appears qualitatively normal. Cholecystokinin (0.02 ug/kg) was administered intravenously over a 30-minute period. The post CCK gallbladder ejection fraction calculated at 21 minutes following Cholecystokinin administration was noted to be 83.0 % (normal greater than 35%). During 30 minutes of post CCK imaging, there is no scintigraphic evidence of reflux of the radiotracer into the common hepatic duct or refilling of the gallbladder. 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 [place]/Hepatobilliary Img w/Pharm Int IMPRESSION: 1. A gallbladder ejection fraction calculated to be greater than 35% following the administration of Cholecystokinin makes the probability of functional hepatobiliary disease (gallbladder and/or sphincter of Oddi dyskinesia) and/or organic hepatobiliary disease (chronic acalculous cholecystitis and/or cystic duct syndrome) to be low. (Dee Giang et al, Journal of Nuclear Medicine 32:1695, 1990). 2. There is scintigraphic evidence of post CCK duodenal-gastric reflux as described above. (Lea et al, Nucl Med Neha Rhoda Press pg. 35, 1980). Electronically Signed: Vick Curtis DO at 22:53 EST Tel , Service support ,
== END ==
PROVIDERS: PCP Internal Medicine; Visit Provider Nurse Practitioner Adult Health
DX: R10.9 Unspecified abdominal pain (principal)
CPT/HCPCS: 78227; A9537; J2805